=== PATIENT | male | born 1990 | race Caucasian/White ===

== ENCOUNTER 2021-09-29 10:37 | Emergency (ER) | payer OTHER, MEDICAID, SELFPAY ==
[2021-09-29 10:38] VITALS: BP 110/92; PULSE 100; RESP 18; TEMP 36.6; O2SAT 99; BMI 20.7
--- NOTE | 2021-09-29 11:13 | EX.ED.DYSGE1 ---
HPI History of Present Illness Chief Complaint: General Illness Narrative Narrative: Patient presents with 2 issues. First off, within the past 2 or 3 days he has had a runny nose, fever up to 101 off-and-on, and a nonproductive cough. Secondly, overnight he noticed that his right knee was hurting, swollen anteriorly, and having some drainage from a wound. The wound was sustained during an accidental injury, he had sutures here, those sutures were subsequently removed 2 or 3 weeks ago. He states he remember seeing it at 1 point yesterday and it was fine, and now it is not. It did not hurt him until overnight. He states at work he does a lot of squatting but is not kneeling on his knees. [facility] Medical History (Updated 09/29/21 @ 11:37 by Eunice Zarate) Psoriasis Medical History no medical history no medical history Home Medications cephalexin 500 mg capsule 500 mg PO .qid #40 CAPSULES 09/29/21 [Rx Last Taken Unknown] Allergy/AdvReac Type Severity Reaction Status Date / Time No Known Allergies Allergy Verified 09/29/21 10:41 Surgical History no surgical history no surgical history Social History Smoking Status: Never smoker ROS ROS ED Constitutional Constitutional ED: Reports chills and fever(s) Eyes Eyes: Denies change in vision or diplopia ENT ENT ED: Reports rhinorrhea; Denies sore throat Cardiovascular Cardiovascular: Denies chest pain or palpitations Respiratory/Chest Respiratory/Chest: Reports cough; Denies dyspnea Gastrointestinal Gastrointestinal: Denies abdominal pain, diarrhea, nausea or vomiting Genitourinary Genitourinary ED: Denies dysuria or hematuria Musculoskeletal Musculoskeletal: Reports extremity pain; Denies back pain or neck pain Integumentary Reports as per HPI and wounds; Denies abscess or rash Neurologic Neurologic: Denies headache(s), paresthesias or weakness Psychiatric Psychiatric: Denies anxiety or suicidal thoughts EXAM Physical Exam Const Vital Signs: 09/29/21 10:38 09/29/21 11:36 Temperature 97.9 F Temperature Source Temporal Pulse Rate 100 Respiratory Rate 18 Respiratory Pattern Normal Blood Pressure 110/92 H Blood Pressure Mean 98 Pulse Ox 99 Oxygen Delivery Method Room Air Positive well nourished and well developed Constitutional Narrative: Well-appearing in no distress General Appearance ED: well developed and NAD HEENT Reports moist mucous membranes normocephalic and atraumatic Eyes PERRL and EOMs intact bilaterally Neck full ROM and supple Resp normal respiratory effort and clear to auscultation bilaterally Effort and Inspection: able to speak in complete sentences Cardio regular rate, regular rhythm and no murmurs Rate: Negative for tachycardic GI non-tender and non-distended Auscultation: normoactive bowel sounds Palpation: soft Back/Spine no CVA tenderness General Back: other FROM Extremity Extremity Narrative: Right prepatellar swelling and bogginess without fluctuance. It is tender anteriorly where there is a scabbed wound that is horizontal over the patella, there is a scant amount of purulent material expressible from the center of this. The wound is not wide open. There does not appear to be a joint effusion or any other bony tenderness in the knee area, he has good range of motion limited at extremes of flexion due to pain anteriorly. General Extremety ED: Yes tenderness; Negative for edema or pulses abnormal General Extremity: Negative for edema or pulses abnormal Neuro oriented x3, CN's II-XII intact bilaterally and no sensory deficits noted Sensorium / Orientation: awake and alert Motor Exam: strength 5/5 throughout Skin no rashes or lesions noted Skin Narrative: Slightly erythematous scabbed wound anterior right knee with a small amount of pus expressible. MDM MDM MDM Narrative Medical decision making narrative: I prepped the right knee scabbed wound lightly with isopropanol and half of the scab fell off, showing a wound that is only into the dermis, and I was able to express a small amount of fresh purulent material that I swabbed for culture. I am mashed on the boggy prepatellar area and there is no other purulent material expressible and it does not appear to be abscessed deep into the tissues. The wound was further cleansed after the culture, dressed with bacitracin, and he was given an Ish wrap to use as needed for comfort. We also did a rapid COVID test. That is negative. Patient reassured and prescribed cephalexin which hopefully will take care of this superficial wound infection. Discharge Plan Triage Chief Complaint: General Illness ED Provider: Luis Tran Dx/Rx/DC Orders Clinical Impression: Wound infection, Bursitis, prepatellar, right Instructions: ED Wound Check (Infection) Prescriptions: New cephalexin [cephalexin] 500 mg capsule 500 mg PO .qid Qty: 40 0RF Primary Care Provider: Francis Benito Referrals: Francis Benito MD [Primary Care Provider] - 3-5 Days if not improving Disposition Disposition: Home, Self Care
[2021-09-29 13:24] VITALS: BP 115/72; PULSE 80; RESP 15; O2SAT 98
== END 2021-09-29 13:26 | disposition home or self-care (01) ==
PROVIDERS: Emergency Provider Emergency Medicine; PCP Family Medicine; Visit Provider Emergency Medicine
DX: M70.41 Prepatellar bursitis, right knee (principal); S81.001A Unspecified open wound, right knee, initial encounter; X58.XXXA Exposure to other specified factors, initial encounter; Z20.822 Contact with and (suspected) exposure to COVID-19; R50.9 Fever, unspecified; R05.9 Cough, unspecified
CPT/HCPCS: 87070; 87077; 87186; 87205; 87811; 99282

== ENCOUNTER → 2024-10-20 | Outpatient (CLI) | payer OTHER, SELFPAY ==
--- OUTSIDE RECORDS SUMMARY | 2024-10-20 16:13 | XMS RPT_ITS | CCD ---
Author Organization [facility] Team Providers Care Sales Representative Graphic Art Name Role Phone YE THORNTON, LEXY Delarosa Primary Care Physician [phone] Jose Benito MD Primary Care Provider Jose Benito MD Primary Care Provider MARK OLVERA Attending LEXY Marie MD Primary Care Unavailab Berrios, LENCHO Cleary Attending Darrin GUZMÁN, LENCHO Cleary Attending LEXY Kerr MD Primary Care UnavailSONYA Cerda Attending JOSE Marie Primary Care SONYA Vance Attending JOSE Marie Primary Care Unavailable Allergies Allergy Classification Reported Allergen(s) Allergy Type Date of Onset Reaction(s) Facility (8 sources) Latex Propensity to adverse reactions 02-23-2023 [facility] Medications Current Medications Medication Drug Class(es) Dates Sig (Normalized) Sig (Original) 1 ML risankizumab-rzaa 150 MG/ML Auto-Injector [Skyrizi] (3 sources) Start: 09-08-2021 Skyrizi Pen 150 mg/mL subcutaneous solution 0 Refill(s) Start Date: 09/08/21 Status: Ordered 0.4 ml adalimumab 100 mg/ml auto-injector (1 source) Tumor Necrosis Factor Zackary Start: 09-08-2021 Humira Pen 40 mg/0.4 mL subcutaneous kit 0 Refill(s) Start Date: 09/08/21 Status: Ordered cephalexin 500 mg oral capsule (1 source) Cephalosporin Antibacterial Start: 09-29-2021 take 500 mg by mouth four times daily Cephalexin Active 500 MG PO .qid 40 September 29, 2021 12:00am clobetasol propionate 0.0005 mg/mg topical ointment (11 sources) Corticosteroid Start: 06-30-2022 End: 04-03-2024 clobetasol (Temovate) 0.05 % ointment Indications: Psoriasis vulgaris , Encounter for long-term (current) use of high-risk medication Apply to affected areas BID x 2 weeks Stop using when clear. Repeat as needed for flares. Do not use on face, armpits, groin. 60 g 3 04/03/2024 Active Ibuprofen (1 source) Nonsteroidal Anti-inflammatory Drug Start: 02-23-2018 ibuprofen 0 Refill(s) Start Date: 02/23/18 Status: Ordered Roflumilast (2 sources) Phosphodiesterase 4 Inhibitor Start: 07-25-2024 Roflumilast (Zoryve) 0.3 % cream Apply once daily to the affected area 60 g 6 07/25/2024 Active Skyrizi Pen 150 MG/ML solution auto-injector (5 sources) Start: 03-19-2024 Skyrizi Pen 150 MG/ML solution auto-injector INJECT 150MG SUBCUTANEOUSLY EVERY 12 WEEKS 1 mL 3 03/19/2024 Active Completed/Discontinued Medications Medication Drug Class(es) Dates Sig (Normalized) Sig (Original) Risankizumab-rzaa (Skyrizi Pen) 150 MG/ML solution auto-injector (7 sources) Start: 04-26-2023 End: 03-19-2024 Risankizumab-rzaa (Skyrizi Pen) 150 MG/ML solution auto-injector INJECT 150MG SUBCUTANEOUSLY EVERY 12 WEEKS 1 mL 3 04/26/2023 03/19/2024 Discontinued Start: 04-26-2023 Risankizumab-r zaa (Skyrizi Pen) 150 MG/ML solution auto- injector INJECT 150MG SUBCUTANEOUSLY EVERY 12 WEEKS 1 mL 3 04/26/2023 Active Start: 06-09-2022 End: 04-26-2023 Risankizumab-rzaa (Skyrizi P en) 150 MG/ML solution auto- injector Inject 100mg under the skin every 12 weeks 1 mL 3 06/09/2022 04/26/2023 Discontinued Start: 06-09-2022 Risankizumab-r zaa (Skyrizi Pen) 150 MG/ML solution auto- injector Inject 100mg under the skin every 12 weeks 1 mL 3 06/09/2022 Active Problems Active Problems Problem Classification Problem Date Documented Da te Episodic/Chronic Contraceptive and procreative management (2 sources) Vasectomy status; Translations: [Vasectomy status] Onset: 03-26-2024 Episodic Other aftercare (2 sources) Long-term current use of drug therapy; Translations: [Other half-way (current) drug therapy] 12-20-2023 Episodic Other connective tissue disease (1 source) Prepatellar bursitis; Translations: [Prepatellar bursitis, right knee] Episodic Other inflammatory condition of skin (3 sources) Generalized psoriasis 09-08-2021 Chronic Other inflammatory condition of skin (16 sources) Psoriasis vulgaris; Translations: [Psoriasis vulgaris] Onset: 03-26-2021 12-06-2021 Chronic Other inflammatory condition of skin (1 source) Psoriasis vulgaris; Translations: [Psoriasis vulgaris] Onset: 12-06-2021 Chronic Other injuries and conditions due to external causes (1 source) Local infection of wound; Translations: [Other injury of unspecified body region, initial encounter] Episodic Unclassified (1 source) Patient encounter status 09-04-2021 Past or Other Problems Problem Classification Problem Date Documented Da te Episodic/Chronic Immunizations and screening for infectious disease (12 sources) Patient encounter status; Translations: [Encounter for screening for respiratory tuberculosis] Onset: 12-20-2023 Episodic Other aftercare (2 sources) Other half-way (current) drug therapy; Translations: [Other half-way (current) drug therapy] Onset: 12-20-2023 Episodic Results Test Name Value Interpretation Reference Range Facility 36 08-14-2024 36 SUBJECTIVE Lencho Alejo is a 34 year old Male who was referred to [facility] for clinical management services for Zoryve 0.3 %. Diagnosis Psoriasis vulgaris L40.0 OBJECTIVE Medications: Skyrizi Pen 150 MG/ML SOAJ SC Temovate 0.05 % CREA EX Zoryve 0.3 % CREA EX Allergies: No Known Allergies Medical History & Comorbidities: Problem list has been reviewed in the EHR ASSESSMENT / PLAN Zoryve 0.3 % Expectations and Goals of therapy Goals of therapy include reduce body surface area coverage, reduce pain/itching, and reduce flaring. Disease state education Counseled on general disease state management strategies. Emphasized that Psoriasis is a chronic medical condition that requires consistent adherence to prescribed medication in order to achieve treatment goals. Administration Apply Zoryve to affected areas once daily and rub in completely. Wash hands after application, unless treatment intended for hands. The patient will apply the medication topically once daily. I do not foresee any barriers as the patient is comfortable with application. The patient is up to date with vaccinations. Storage/Disposal Counseled on proper storage of medication at room temperature (77F max). Side effects Educated that common side effects include diarrhea, headache, trouble sleeping, nausea, application site pain, upper respiratory tract infections, and urinary tract infections. Contact Advised when to contact pharmacy or provider. Provided with direct number to clinical pharmacist for questions or concerns prior to scheduled follow up. The patient was oriented to the pharmacy?s services upon their initial fill and it was communicated that they can participate in this plan of care by speaking with a Pharmacist which is offered during each reassessment. Adherence The patient needs to apply Zoryve once daily to affected areas as prescribed. Monitoring and follow up Reviewed therapy monitoring parameters and importance to maintain follow-up lab and provider visits. The patient is aware to let us know if any issues or reactions occur while on this medication so that we can let the provider know as well as any changes in medications so we can assess for interactions and such. Pharmacy Recommendations/Educa tion/Other The patient expressed understanding of the above therapy plan and knows to reach out to us at [phone] M-F 8 AM - 5 PM. Akanksha Sargent Clinical Pharmacist [facility] [phone] [facility] Office Visiton 07-11-2024 Follow-up visit [id number] Lencho Alejo 1990 M Date Provider Department Center 07/11/2024 Vladislav-SONYA PAVON [facility] None Family History Problem Relation Age of Onset Diabetes Mother Eczema Mother Asthma Father No Known Problems Brother Family Status - Relation Status Age at Mother Alive Father Alive Brother Alive Level of Service:99405 [place] OFFICE/OUTPATIENT ESTABLISHED MOD MDM 30 MIN Reason for Visit and Comments: Psoriasis [[id number]] - (JY) [facility] Progress Noteon 07-11-2024 Progress Note DATE OF SERVICE: 07/11/2024 PATIENT NAME: Lencho Alejo : 1990 AGE: 34 y.o. CLINIC NUMBER: [id number] Visit type: Established patient Chief Complaint Patient presents with Psoriasis (JY) Subjective HISTORY OF PRESENT ILLNESS: This is a 34 y.o. male who presents for F/u psoriasis; last seen 12/20/23 with Sonya Pavon PA-C. Stable since last visit. Currently treating with skyrizi injections and clobetasol ointment PRN. Patient self administers injections at home without complications. Start date 04/2021. Last injection 05/16/24. Last labs 01/12/24 WNL. 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 Admits redness, flaking, scaling. Denies itching, burning, Admits pain on the L elbow. Denies joint pain/ joint stiffness. Denies nail ridges, pitting, thickening, discoloration. Patient has had flares to his groin for years but never mentioned it. Patient states since the skyrizi injection it has cleared a little but gets worse after month 2 of the shot. Patient has been using clobetasol down there with little to no improvement. Today is a good day. Patient admits when it is severely flared, he is unable to have intercourse due to pain and even bleeding to the area. Patient states about 1 month ago he was diagnosed with Shingles and was treated with valtrex. Patient denies having shingles vaccine. Pt has previously failed Otezla and Humira. History of pacemaker/ defibrillator? No History of HIV/ Hep C? No Allergies to Lidocaine, Epinephrine, Latex or Adhesive? Yes, Latex Review of Systems There were no vitals filed for this visit. PHYSICAL EXAM GENERAL APPEARANCE:?Alert & oriented x3, pleasant. Well developed, well nourished. PSYCH: appropriate mood and affect DERMATOLOGY: (all measurements are in cm, unless otherwise noted) Skin Exam 1. PSORIASIS VULGARIS Generalized Erythematous plaque(s) and papule(s) with overlying white/silver scale of the elbows, palms, penis, and scrotum [x]Chronic []Acute []Stable [x]Flaring/Exacerbati on Educated and reassured. Treatment options, risks, benefits, and expectations reviewed. Patient flares in the groin area. Patient advised to wear cotton gloves after lathering the clobetasol on his hands prior to going to bed. Zoryve given to patient. Start: -Zoryve cream ([facility] staff consulted regarding medication request and they will start working on PA) Apply to affected areas once daily. Stop using when clear. Repeat as needed for flares. Continue: -Skyrizi 150mg injections Q12 weeks. Pharmacy staff consulted to try and increase frequency to q 10 weeks. -clobetasol 0.05% ointment: Apply to affected areas BID x 2 weeks Stop using when clear. Repeat as needed for flares. Do not use on face, armpits, groin. Risks associated with longitudinal float operator topical steroid use reviewed in detail. Patient was advised that topical steroid is being used for short term relief and not as maintenance. Overuse of topical steroids can result in permanent skin thinning/atrophy, skin discoloration, unwanted hair growth, acne and/or stretch spangler/striae. Patient advised psoriasis is a chronic, multisystem inflammatory disease which most commonly affects the skin. Psoriasis can also affect the nails, joints and skin folds. Depending on the severity and location of the psoriasis, treatment includes topical steroids, topical vitamin D analogs, UV treatment, topical retinoids and systemic treatment. Systemic medications called biologics are injection medications that can be used to treat psoriasis. Biologics are selected on an individual basis with consideration of the patient's medical history and family history. Due to intertriginous region involvement, will consider tremfya at follow up if no improvement. Related Medications clobetasol (Temovate) 0.05 % ointment Apply to affected areas BID x 2 weeks Stop using when clear. Repeat as needed for flares. Do not use on face, armpits, groin. Follow up in about 6 months (around 01/11/2025) for psoriasis f/u. Sonya Pavon PA-C 07/11/24 4:48 PM [facility] 36on 04-03-2024 36 Refill request received for Clobetasol 0.05% ointment. Last filled 02/23/2023 by Meena Bains PA-C. Patient last seen 12/20/2023 by Sonya Andres PA-C. Patient does have a follow up appointment scheduled w/ Sonya Andres PA-C on 06/21/2024. [facility] PVASon 03-26-2024 Spermatazoa Absent [facility] MAIN Comment on above: Result Comment: Perf ormed on concentrated spun sample. Analysis of sperm samples for presence and motility should be performed within four hours of collection. Results of samples not meeting this criteria may be invalid. Performed By: #### P VAS #### [place] [address] 36on 03-19-2024 36 Refill request received for Risankizumab-rzaa (Skyrizi Pen) 150 MG/ML solution auto-injector. Last filled 04/26/23 by Sonya Andres PA-C. Patient last seen 12/20/23 by Sonya Andres PA-C. Patient does have a follow up appointment scheduled 06/21/24 with Sonya Andres PA-C. [facility] 36on 01-17-2024 36 Left voicemail for patient regarding Sonya Andres PA-C's message. Advised to call back with questions or concerns. [place] [address]on 01-16-2024 36 Left voicemail for patient to return call regarding Sonya Andres PA-C's message. [facility] 36 ----- Message from Sonya Andres PA-C sent at 01/16/2024 12:57 PM EST ----- Please notify patient that their routine biologic blood work is normal. A positive hep b antibody means patient was either exposed to hep b or got the hep b vaccines. This is nothing to worry about. Patient can continue biologic. [facility] Office Visiton 12-20-2023 Follow-up visit [id number] Lencho Alejo 1990 M Date Provider Department Center 12/20/2023 233-SONYA ANDRES [facility] None Family History Problem Relation Age of Onset Diabetes Mother Eczema Mother Asthma Father No Known Problems Brother Family Status - Relation Status Age at Mother Alive Father Alive Brother Alive Level of Service:02430 [place] OFFICE/OUTPATIENT ESTABLISHED MOD MDM 30 MIN Reason for Visit and Comments: Psoriasis [[id number]] - (PKN) [facility] Progress Noteon 12-20-2023 Progress Note DATE OF SERVICE: 12/20/2023 PATIENT NAME: Lencho Alejo : 1990 AGE: 33 y.o. CLINIC NUMBER: [id number] Visit type: Established patient Chief Complaint Patient presents with Psoriasis (PKN) Subjective HISTORY OF PRESENT ILLNESS: This is a 33 y.o. male who presents for evaluation of psoriasis vulgaris; last seen 02/23/2023. Improved, stable since last visit. Currently treating with Skyrizi 150 mg injection every 12 weeks and clobetasol 0.05% ointment BID PRN. Patient self administers injections at home without complications. Start date 04/2021. Last injection was 11/16/2023. Last labs 07/01/2022. Denies flares currently. But does admit occasional flares to the hands and genitals. Admits improvement when using clobetasol. Admits redness, flaking, scaling occasionally to the hands. Denies itching, burning, pain. Denies any new or worsening joint pain/ joint stiffness. Denies nail ridges, pitting, thickening, discoloration. Patient has tried and failed Humira and Otezla previously. History of pacemaker/ defibrillator? No History of HIV/ Hep C? No Allergies to Lidocaine, Epinephrine, Latex or Adhesive? Yes, Latex. Review of Systems There were no vitals filed for this visit. PHYSICAL EXAM GENERAL APPEARANCE:?Alert & oriented x3, pleasant. Well developed, well nourished. PSYCH: appropriate mood and affect DERMATOLOGY: (all measurements are in cm, unless otherwise noted) 1. Psoriasis vulgaris Clear skin on exam [x]Chronic []Acute [x]Stable []Flaring/Exacerbatio n Educated and reassured. Treatment options, risks, benefits, and expectations reviewed. Patient doing well on skyrizi. Needs lab done. Papers handed to him. Script will not be refilled until labs complete. Continue: -Skyrizi 150 mg injection q12 weeks. -clobetasol 0.05% ointment: Apply to affected areas BID x 2 weeks Stop using when clear. Repeat as needed for flares. Do not use on face, armpits, groin. Risks associated with half-way topical steroid use reviewed in detail. Patient was advised that topical steroid is being used for short term relief and not as maintenance. Overuse of topical steroids can result in permanent skin thinning/atrophy, skin discoloration, unwanted hair growth, acne and/or stretch spangler/striae. Patient advised psoriasis is a chronic, multisystem inflammatory disease which most commonly affects the skin. Psoriasis can also affect the nails, joints and skin folds. Depending on the severity and location of the psoriasis, treatment includes topical steroids, topical vitamin D analogs, UV treatment, topical retinoids and systemic treatment. Systemic medications called biologics are injection medications that can be used to treat psoriasis. Biologics are selected on an individual basis with consideration of the patient's medical history and family history. Related Medications clobetasol (Temovate) 0.05 % ointment Apply to affected areas BID x 2 weeks Stop using when clear. Repeat as needed for flares. Do not use on face, armpits, groin. 2. Encounter for long-term (current) use of high-risk medication Related Procedures CBC auto differential Comprehensive metabolic panel Hepatitis A antibody, IgM Hepatitis B core antibody, IgM Hepatitis B surface antibody Hepatitis B surface antigen Hepatitis C antibody HIV-1 and HIV-2 Antigen-Antibody Screen QUANTIFERON TB GOLD Related Medications clobetasol (Temovate) 0.05 % ointment Apply to affected areas BID x 2 weeks Stop using when clear. Repeat as needed for flares. Do not use on face, armpits, groin. 3. Encounter for screening for respiratory tuberculosis Related Procedures QUANTIFERON TB GOLD 4. Screening for viral disease Related Procedures Hepatitis A antibody, IgM Hepatitis B core antibody, IgM Hepatitis B surface antibody Hepatitis B surface antigen Hepatitis C antibody HIV-1 and HIV-2 Antigen-Antibody Screen Follow up in about 6 months (around 06/19/2024) for Psoriasis f/u. Sonya Andres PA-C 12/20/23 4:08 PM Normal [facility] .Auto Diffon 09-20-2023 Basophil, Absolute 0.0 10 3/mcL Normal 0.0-0.3 [facility] ([place]) Comment on above: Performed By: #### A DIFF, TROPHS, ANEU, CMP, GFR, CBC, MDW #### [address] [address] Basophils/100 WBC (Bld) 0.7 % Normal 0.0-2.5 [facility] ([place]) Comment on above: Performed By: #### A DIFF, TROPHS, ANEU, CMP, GFR, CBC, MDW #### [address] [address] Eosinophil, Absolute 0.4 10 3/mcL Normal 0.0-0.7 [facility] ([place]) Comment on above: Performed By: #### A DIFF, TROPHS, ANEU, CMP, GFR, CBC, MDW #### [address] [address] Eosinophils/100 WBC (Bld) 5.7 % Normal 0.0-6.0 [facility] ([place]) Comment on above: Performed By: #### A DIFF, TROPHS, ANEU, CMP, GFR, CBC, MDW #### [address] [address] Lymphocyte, Absolute 1.1 10 3/mcL Normal 0.9-4.3 [facility] ([place]) Comment on above: Performed By: #### A DIFF, TROPHS, ANEU, CMP, GFR, CBC, MDW #### [address] [address] Lymphocytes/100 WBC (Bld) 15.9 % Low 20.0-40.0 [facility] ([place]) Comment on above: Performed By: #### A DIFF, TROPHS, ANEU, CMP, GFR, CBC, MDW #### [address] [address] Monocyte, Absolute 0.5 10 3/mcL Normal 0.1-1.4 [facility] ([place]) Comment on above: Performed By: #### A DIFF, TROPHS, ANEU, CMP, GFR, CBC, MDW #### [address] [address] Monocytes/100 WBC (Bld) 7.0 % Normal 2.0-13.0 [facility] ([place]) Comment on above: Performed By: #### A DIFF, TROPHS, ANEU, CMP, GFR, CBC, MDW #### [address] [address] Neutrophils/100 WBC (Bld) 70.7 % Normal 50.0-75.0 [facility] ([place]) Comment on above: Performed By: #### A DIFF, TROPHS, ANEU, CMP, GFR, CBC, MDW #### [address] [address] .GFRon 09-20-2023 GFR Non- >60 Normal [facility] ([place]) Comment on above: Result Comment: GFR Population mean for , Non- Americans Ages 20-29 = 116 mL/min/1.73 sq.m. Ages 30-39 = 107 mL/min/1.73 sq.m. Ages 40-49 = 99 mL/min/1.73 sq.m. Ages 50-59 = 93 mL/min/1.73 sq.m. Ages 60-69 = 85 mL/min/1.73 sq.m. Ages 70+ = 75 mL/min/1.73 sq.m. Chronic Kidney Disease: Less than 60 mL/min/1.73 square meters End Stage Renal Disease: Less than 15 mL/min/1.73 square meters Performed By: #### A DIFF, TROPHS, ANEU, CMP, GFR, CBC, MDW #### [address] [address] GFR >60 Normal [facility] ([place]) Comment on above: Result Comment: GFR Population mean for , Non- Americans Ages 20-29 = 116 mL/min/1.73 sq.m. Ages 30-39 = 107 mL/min/1.73 sq.m. Ages 40-49 = 99 mL/min/1.73 sq.m. Ages 50-59 = 93 mL/min/1.73 sq.m. Ages 60-69 = 85 mL/min/1.73 sq.m. Ages 70+ = 75 mL/min/1.73 sq.m. Chronic Kidney Disease: Less than 60 mL/min/1.73 square meters End Stage Renal Disease: Less than 15 mL/min/1.73 square meters Performed By: #### A DIFF, TROPHS, ANEU, CMP, GFR, CBC, MDW #### [address] [address] .MDWon 09-20-2023 Monocyte Distribution Width 16.43 Normal 0.00-20.00 [facility] ([place]) Comment on above: Result Comment: For ED adult patients suspected of sepsis, MDW<=20.0 does not rule out sepsis or risk of sepsis Performed By: #### A DIFF, TROPHS, ANEU, CMP, GFR, CBC, MDW #### [address] [address] .NEUABSon 09-20-2023 Neutrophil, Absolute 5.0 10 3/mcL Normal 2.3-8.1 [facility] ([place]) Comment on above: Performed By: #### A DIFF, TROPHS, ANEU, CMP, GFR, CBC, MDW #### [place] [address] CBCon 09-20-2023 Erythrocyte distribution width (RBC) [Ratio] 13.9 % Normal 11.5-15.5 [facility] ([place]) Comment on above: Performed By: #### A DIFF, TROPHS, ANEU, CMP, GFR, CBC, MDW #### [place] [address] Hematocrit (Bld) [Volume fraction] 40.4 % Normal 40.0-52.0 [facility] ([place]) Comment on above: Performed By: #### A DIFF, TROPHS, ANEU, CMP, GFR, CBC, MDW #### [place] [address] Hgb 13.6 G/dL Normal 13.0-17.5 [facility] ([place]) Comment on above: Performed By: #### A DIFF, TROPHS, ANEU, CMP, GFR, CBC, MDW #### [place] [address] MCH (RBC) [Entitic mass] 31.5 pg Normal 27.0-33.0 [facility] ([place]) Comment on above: Performed By: #### A DIFF, TROPHS, ANEU, CMP, GFR, CBC, MDW #### [place] [address] MCHC 33.6 G/dL Normal 32.0-36.0 [facility] ([place]) Comment on above: Performed By: #### A DIFF, TROPHS, ANEU, CMP, GFR, CBC, W #### [place] [address] MCV (RBC) [Entitic vol] 93.8 fL Normal 81.0-100.0 [facility] ([place]) Comment on above: Performed By: #### A DIFF, TROPHS, ANEU, CMP, GFR, CBC, MDW #### [place] [address] Platelet 223 10 3/mcL Normal 150-450 [facility] ([place]) Comment on above: Performed By: #### A DIFF, TROPHS, ANEU, CMP, GFR, CBC, W #### [place] [address] Platelet mean volume (Bld) [Entitic vol] 7.9 fL Normal 6.4-10.5 [facility] ([place]) Comment on above: Performed By: #### A DIFF, TROPHS, ANEU, CMP, GFR, CBC, W #### [place] [address] RBC 4.31 10 6/mcL Low 4.50-6.00 [facility] ([place]) Comment on above: Performed By: #### A DIFF, TROPHS, ANEU, CMP, GFR, CBC, W #### [place] [address] WBC 7.0 10 3/mcL Normal 4.5-10.8 [facility] ([place]) Comment on above: Performed By: #### A DIFF, TROPHS, ANEU, CMP, GFR, CBC, W #### [place] [address] CMPon 09-20-2023 Albumin Level 4.5 G/dL Normal 3.2-4.8 [facility] ([place]) Comment on above: Performed By: #### A DIFF, TROPHS, ANEU, CMP, GFR, CBC, W #### [address] [address] Albumin/Globulin [Mass ratio] 1.9 {ratio} High 0.9-1.6 [facility] ([place]) Comment on above: Performed By: #### A DIFF, TROPHS, ANEU, CMP, GFR, CBC, MDW #### [place] [id number] ALP [Catalytic activity/Vol] 67 U/L Normal 38-126 [facility] ([place]) Comment on above: Performed By: #### A DIFF, TROPHS, ANEU, CMP, GFR, CBC, MDW #### [place] [id number] ALT [Catalytic activity/Vol] 14 U/L Normal 12-55 [facility] ([place]) Comment on above: Performed By: #### A DIFF, TROPHS, ANEU, CMP, GFR, CBC, MDW #### [place] [id number] AST [Catalytic activity/Vol] 23 U/L Normal 8-34 [facility] ([place]) Comment on above: Performed By: #### A DIFF, TROPHS, ANEU, CMP, GFR, CBC, MDW #### [place] [id number] Bili Total 0.60 mg/dL Normal 0.20-1.20 [facility] ([place]) Comment on above: Result Comment: Use of this assay is not recommended for patients undergoing treatment with eltrombopag due to the potential for falsely elevated results. Performed By: #### A DIFF, TROPHS, ANEU, CMP, GFR, CBC, MDW #### [place] [id number] BUN/Creatinine Ratio 20.2 ratio Normal 10.0-22.0 [facility] ([place]) Comment on above: Performed By: #### A DIFF, TROPHS, ANEU, CMP, GFR, CBC, MDW #### [place] [id number] Calcium [Mass/Vol] 9.6 mg/dL Normal 8.7-10.4 [facility] ([place]) Comment on above: Performed By: #### A DIFF, TROPHS, ANEU, CMP, GFR, CBC, MDW #### [address] [address] Chloride [Moles/Vol] 102 mmol/L Normal 98-110 [facility] ([place]) Comment on above: Performed By: #### A DIFF, TROPHS, ANEU, CMP, GFR, CBC, MDW #### [address] [address] CO2 [Moles/Vol] 27 mmol/L Normal 22-32 [facility] ([place]) Comment on above: Performed By: #### A DIFF, TROPHS, ANEU, CMP, GFR, CBC, MDW #### [place] [id number] Creatinine [Mass/Vol] 0.84 mg/dL Normal 0.60-1.40 [facility] ([place]) Comment on above: Performed By: #### A DIFF, TROPHS, ANEU, CMP, GFR, CBC, MDW #### [place] [address] Electrolyte Balance 9.0 mEq/L Normal 4.0-15.0 [facility] ([place]) Comment on above: Performed By: #### A DIFF, TROPHS, ANEU, CMP, GFR, CBC, MDW #### [address] [address] Globulin 2.4 G/dL Normal 1.5-3.8 [facility] ([place]) Comment on above: Performed By: #### A DIFF, TROPHS, ANEU, CMP, GFR, CBC, MDW #### [address] [address] Glucose [Mass/Vol] 80 mg/dL Normal 70-110 [facility] ([place]) Comment on above: Performed By: #### A DIFF, TROPHS, ANEU, CMP, GFR, CBC, MDW #### [place] [id number] Potassium [Moles/Vol] 3.8 mmol/L Normal 3.5-5.0 [facility] ([place]) Comment on above: Performed By: #### A DIFF, TROPHS, ANEU, CMP, GFR, CBC, MDW #### [address] [address] Sodium [Moles/Vol] 138 mmol/L Normal 136-145 [facility] ([place]) Comment on above: Performed By: #### A DIFF, TROPHS, ANEU, CMP, GFR, CBC, MDW #### [address] [address] Total Protein 6.9 G/dL Normal 5.7-8.2 [facility] ([place]) Comment on above: Result Comment: No te - New Reference Range in effect 19 Performed By: #### A DIFF, TROPHS, ANEU, CMP, GFR, CBC, MDW #### [address] [address] Urea nitrogen [Mass/Vol] 17.0 mg/dL Normal 8.0-22.0 [facility] ([place]) Comment on above: Performed By: #### A DIFF, TROPHS, ANEU, CMP, GFR, CBC, MDW #### [address] [address] LABORATORYOrdered By: SYSTEM SYSTEM on 09-20-2023 Albumin BCP dye [Mass/Vol] 4.5 G/dL Normal 3.2 - 4.8 G/dL ADM SS Albumin/Globulin [Mass ratio] 1.9 {ratio} High 0.9 - 1.6 ratio ADM SS ALP [Catalytic activity/Vol] 67 U/L Normal 38 - 126 U/L ADM SS ALT No additional P-5'-P [Catalytic activity/Vol] 14 U/L Normal 12 - 55 U/L ADM SS AST [Catalytic activity/Vol] 23 U/L Normal 8 - 34 U/L ADM SS Basophils (Bld) [#/Vol] 0.0 103/mcL Normal 0.0 - 0.3 10^3/mcL AH Workflow SS Basophils/100 WBC (Bld) 0.7 % Normal 0.0 - 2.5 % Workflow SS Bilirubin [Mass/Vol] 0.60 mg/dL Normal 0.20 - 1.20 mg/dL ADM SS Comment on above: Interpretive Data: U se of this assay is not recommended for patients undergoing treatment with eltrombopag due to the potential for falsely elevated results. Calcium [Mass/Vol] 9.6 mg/dL Normal 8.7 - 10. 4 mg/dL ADM SS Chloride [Moles/Vol] 102 mmol/L Normal 98 - 11 0 mEq/L ADM SS CO2 [Moles/Vol] 27 mmol/L Normal 22 - 32 mEq/L ADM SS Creatinine [Mass/Vol] 0.84 mg/dL Normal 0.60 - 1.40 mg/dL ADM SS Electrolyte Balance 9.0 mEq/L Normal 4.0 - 15 .0 mEq/L ADM SS Eosinophils (Bld) [#/Vol] 0.4 103/mcL Normal 0.0 - 0.7 10^3/mcL Workflow SS Eosinophils/100 WBC (Bld) 5.7 % Normal 0.0 - 6.0 % Workflow SS Erythrocyte distribution width (RBC) [Ratio] 13.9 % Normal 11.5 - 15.5 % Workflow SS GFR/1.73 sq M.predicted among blacks MDRD (S/P/Bld) [Vol rate/Area] ml/min/1.73sqm Invalid Interpretation Code ADM SS Comment on above: Interpretive Data: GFR Population mean for , Non- Americans Ages 20-29 = 116 mL/min/1.73 sq.m. Ages 30-39 = 107 mL/min/1.73 sq.m. Ages 40-49 = 99 mL/min/1.73 sq.m. Ages 50-59 = 93 mL/min/1.73 sq.m. Ages 60-69 = 85 mL/min/1.73 sq.m. Ages 70+ = 75 mL/min/1.73 sq.m. Chronic Kidney Disease: Less than 60 mL/min/1.73 square meters End Stage Renal Disease: Less than 15 mL/min/1.73 square meters GFR/1.73 sq M.predicted among non-blacks MDRD (S/P/Bld) [Vol rate/Area] ml/min/1.73sqm Invalid Interpretation Code AH ADM SS Comment on above: Interpretive Data: GFR Population mean for , Non- Americans Ages 20-29 = 116 mL/min/1.73 sq.m. Ages 30-39 = 107 mL/min/1.73 sq.m. Ages 40-49 = 99 mL/min/1.73 sq.m. Ages 50-59 = 93 mL/min/1.73 sq.m. Ages 60-69 = 85 mL/min/1.73 sq.m. Ages 70+ = 75 mL/min/1.73 sq.m. Chronic Kidney Disease: Less than 60 mL/min/1.73 square meters End Stage Renal Disease: Less than 15 mL/min/1.73 square meters Globulin 2.4 G/dL Normal 1.5 - 3.8 G/dL AH ADM SS Glucose [Mass/Vol] 80 mg/dL Normal 70 - 110 mg/dL AH ADM SS Hematocrit (Bld) [Volume fraction] 40.4 % Normal 40.0 - 52.0 % AH Workflow SS Hemoglobin (Bld) [Mass/Vol] 13.6 G/dL Normal 13.0 - 17.5 G/dL AH Workflow SS Lymphocytes (Bld) [#/Vol] 1.1 103/mcL Normal 0.9 - 4.3 10^3/mcL AH Workflow SS Lymphocytes/100 WBC (Bld) 15.9 % Low 20.0 - 40.0 % AH Workflow SS MCH (RBC) [Entitic mass] 31.5 pg Normal 27.0 - 33.0 pg AH Workflow SS MCHC 33.6 G/dL Normal 32.0 - 36.0 G/dL AH Workflow SS MCV (RBC) [Entitic vol] 93.8 fL Normal 81.0 - 100.0 fL AH Workflow SS Monocyte distribution width Auto (Bld) [Entitic vol] 16.43 1 Normal 0.00 - 20.00 AH Workflow SS Comment on above: Result Comment: For ED adult patients suspected of sepsis, MDW<=20.0 does not rule out sepsis or risk of sepsis Monocytes (Bld) [#/Vol] 0.5 103/mcL Normal 0.1 - 1.4 10^3/mcL AH Workflow SS Monocytes/100 WBC (Bld) 7.0 % Normal 2.0 - 13.0 % AH Workflow SS Neutrophils (Bld) [#/Vol] 5.0 103/mcL Normal 2.3 - 8.1 10^3/mcL AH Workflow SS Neutrophils/100 WBC (Bld) 70.7 % Normal 50.0 - 75.0 % Workflow SS Platelet mean volume (Bld) [Entitic vol] 7.9 fL Normal 6.4 - 10.5 fL Workflow SS Platelets (Bld) [#/Vol] 223 103/mcL Normal 150 - 450 10^3/mcL Workflow SS Potassium [Moles/Vol] 3.8 mmol/L Normal 3.5 - 5.0 mEq/L ADM SS Protein [Mass/Vol] 6.9 G/dL Normal 5.7 - 8.2 G/dL ADM SS Comment on above: Interpretive Data: * *Note - New Reference Range in effect 19 RBC (Bld) [#/Vol] 4.31 106/mcL Low 4.50 - 6.0 0 10^6/mcL Workflow SS Sodium [Moles/Vol] 138 mmol/L Normal 136 - 145 mEq/L ADM SS Troponin I.cardiac DL <= 0.01 ng/mL [Mass/Vol] ng/L Normal 0 - 54 ng/L ADM SS Comment on above: Interpretive Data: High Sensitive Troponin I Reference Ranges: Female: 0-34 ng/L Male: 0-54 ng/L Testing performed on [employer] IM analyzer using direct chemiluminescent technology. Urea nitrogen [Mass/Vol] 17.0 mg/dL Normal 8.0 - 22.0 mg/dL ADM SS Urea nitrogen/Creatinine [Mass ratio] 20.2 ratio Normal 10.0 - 22.0 ratio ADM SS WBC (Bld) [#/Vol] 7.0 103/mcL Normal 4.5 - 10.8 10^3/mcL [facility] High Sensitivity Troponin I <3 Normal 0-54 [facility] ([place]) Comment on above: Result Comment: High Sensitive Troponin I Reference Ranges: Female: 0-34 ng/L Male: 0-54 ng/L Testing performed on [employer] IM analyzer using direct chemiluminescent technology. Performed By: #### A DIFF, TROPHS, ANEU, CMP, GFR, CBC, MDW #### [address] [address] XR CHEST 1 VIEWon 09-20-2023 XR CHEST 1 VIEW ORIGINAL EXAMINATION: ONE XRAY VIEW OF THE CHEST7/ 3:27 pm COMPARISON: None. HISTORY: ORDERING SYSTEM PROVIDED HISTORY: Reason for Exam: pain FINDINGS: The cardiomediastinal contours are normal. Vascular structures appear within normal limits. There is no consolidation. Focal density projects near the anterior margin of the left 5th rib. No pleural fluid or pneumothorax. No aggressive osseous lesions identified. IMPRESSION: No acute radiographic finding Density projecting near the anterior margin of the left 5th rib could relate to costochondral calcification, a nipple shadow artifact or parenchymal abnormality. Consider PA and lateral views of the chest to exclude pathology Interpreted by: Edenilson Perry MD Preliminary Report By: Edenilson Perry MD Electronically signed By Edenilson Perry MD Dictated Date: 09/20/2023 3:29:29 PM Prelim Date: 09/20/2023 3:31:07 PM Sign Date: 09/20/2023 3:31:07 PM Ordering Provider: MARK OLVERA [facility] ([place]) Wound Cultureon 10-01-2021 WC Staphylococcus aureu s Amount Growth 3+ Staphylococcus aureus: REACTION cefOXitin Susc Islt NEG Doxycycline Islt ALEXUS <=0.5 S Clindamycin Islt ALEXUS 0.25 S Clindamycin.induced Susc Islt NEG Erythromycin Islt ALEXUS <=0.25 S Gentamicin Islt ALEXUS <=0.5 S levoFLOXacin Islt ALEXUS 0.25 S Linezolid Islt ALEXUS 2 S Moxifloxacin Islt ALEXUS <=0.25 S Oxacillin Susc Islt 0.5 S Tetracycline Islt ALEXUS <=1 S TMP SMX Islt ALEXUS <=10 S Vancomycin Islt ALEXUS <=0.5 S Normal [facility] Comment on above: Performed By: #### M 100.505, M100.3000, M100.2000 #### [facility] [address] [place], [address] COVID 19 AG RAPID (KIMBERLY Flanagan)on 09-29-2021 SARS-CoV-2 (COVID-19) RNA TELLY+probe Ql (Unsp spec) *Negative results from patients with symptom onset beyond five days should be treated as presumptive and confirmed by a molecular assay if clinically necessary. Negative results should not be used as the sole basis for treatment or for patient management. SARS-CoV-2 Ag Resp Ql IA.rapid *Positive results do not differentiate between SARS-CoV and SARS-CoV-2. If differentiation of the specific SARS virus is desired an additional sample and an additional order is required. SARS-CoV-2 Ag Resp Ql IA.rapid * This test has not been FDA cleared or approved; the test has been authorized by FDA under an Emergency Use Authorization (EAU) for use by laboratories certified under CLIA that meet the requirements to perform moderate, high, or waived complexity tests. SARS-CoV-2 Ag Resp Ql IA.rapid Normal Reference Range: Negative SARS-CoV-2 (COVID 19) Negative RAPID METHOD [employer] COVID19 Ag Card Normal [facility] Comment on above: Performed By: #### M 100.505, M100.3000, M100.2000 #### [facility] [address] [place], [address] Emergency Department Summary on 09-29-2021 Emergency Department Summary [facility] Medical Records Department [address] [place] [address] Emergency Department Summary 09/29/21 MR#: [id number] Acct: [id number] Name: IAN ALEJO Rep #: [id number] : 1990 31 From: Luis Tran MD PCP: Dr. Lexy Benito MD Status:REG ER Location: ED HPI History of Present Illness Chief Complaint: General Illness Narrative Narrative: Patient presents with 2 issues. First off, within the past 2 or 3 days he has had a runny nose, fever up to 101 off-and-on, and a nonproductive cough. Secondly, overnight he noticed that his right knee was hurting, swollen anteriorly, and having some drainage from a wound. The wound was sustained during an accidental injury, he had sutures here, those sutures were subsequently removed 2 or 3 weeks ago. He states he remember seeing it at 1 point yesterday and it was fine, and now it is not. It did not hurt him until overnight. He states at work he does a lot of squatting but is not kneeling on his knees. [facility] Medical History (Updated 09/29/21 @ 11:37 by Eunice Zarate) Psoriasis Medical History no medical history no medical history Home Medications cephalexin 500 mg capsule 500 mg PO .qid #40 CAPSULES 09/29/21 [Rx Last Taken Unknown] Allergy/AdvReac Type Severity Reaction Status Date / Time No Known Allergies Allergy Verified 09/29/21 10:41 Surgical History no surgical history no surgical history Social History Smoking Status: Never smoker ROS ROS ED Constitutional Constitutional ED: Reports chills and fever(s) Eyes Eyes: Denies change in vision or diplopia ENT ENT ED: Reports rhinorrhea; Denies sore throat Cardiovascular Cardiovascular: Denies chest pain or palpitations Respiratory/Chest Respiratory/Chest: Reports cough; Denies dyspnea Gastrointestinal Gastrointestinal: Denies abdominal pain, diarrhea, nausea or vomiting Genitourinary Genitourinary ED: Denies dysuria or hematuria Musculoskeletal Musculoskeletal: Reports extremity pain; Denies back pain or neck pain Integumentary Reports as per HPI and wounds; Denies abscess or rash Neurologic Neurologic: Denies headache(s), paresthesias or weakness Psychiatric Psychiatric: Denies anxiety or suicidal thoughts EXAM Physical Exam Const Vital Signs: 09/29/21 10:38 09/29/21 11:36 Temperature 97.9 F Temperature Source Temporal Pulse Rate 100 Respiratory Rate 18 Respiratory Pattern Normal Blood Pressure 110/92 H Blood Pressure Mean 98 Pulse Ox 99 Oxygen Delivery Method Room Air Positive well nourished and well developed Constitutional Narrative: Well-appearing in no distress General Appearance ED: well developed and NAD HEENT Reports moist mucous membranes normocephalic and atraumatic Eyes PERRL and EOMs intact bilaterally Neck full ROM and supple Resp normal respiratory effort and clear to auscultation bilaterally Effort and Inspection: able to speak in complete sentences Cardio regular rate, regular rhythm and no murmurs Rate: Negative for tachycardic GI non-tender and non-distended Auscultation: normoactive bowel sounds Palpation: soft Back/Spine no CVA tenderness General Back: other FROM Extremity Extremity Narrative: Right prepatellar swelling and bogginess without fluctuance. It is tender anteriorly where there is a scabbed wound that is horizontal over the patella, there is a scant amount of purulent material expressible from the center of this. The wound is not wide open. There does not appear to be a joint effusion or any other bony tenderness in the knee area, he has good range of motion limited at extremes of flexion due to pain anteriorly. General Extremety ED: Yes tenderness; Negative for edema or pulses abnormal General Extremity: Negative for edema or pulses abnormal Neuro oriented x3, CN's II-XII intact bilaterally and no sensory deficits noted Sensorium / Orientation: awake and alert Motor Exam: strength 5/5 throughout Skin no rashes or lesions noted Skin Narrative: Slightly erythematous scabbed wound anterior right knee with a small amount of pus expressible. MDM MDM MDM Narrative Medical decision making narrative: I prepped the right knee scabbed wound lightly with isopropanol and half of the scab fell off, showing a wound that is only into the dermis, and I was able to express a small amount of fresh purulent material that I swabbed for culture. I am mashed on the boggy prepatellar area and there is no other purulent material expressible and it does not appear to be abscessed deep into the tissues. The wound was further cleansed after the culture, dressed with bacitracin, and he was given an Ish wrap to use as needed for comfort. We also did a rapid COVID test. That is negative. Patient reassured a (more content not included)... Normal [facility] Gram Stainon 09-29-2021 GS Gram Stain 1+ White Blood Cells 3+ Gram positive cocci Rare Intracellular Gram positive cocci Normal [facility] Comment on above: Performed By: #### M 100.505, M100.3000, M100.2000 #### [facility] [address] [place], [address] CNOVon 04-06-2021 CNOV Office Visit (PODIWS ) LENCHO ALEJO ([id number]) 1990 M Date Time Provider Department 04/06/21 3:30 PM MARTINA SOFIA During your visit today, we recorded the following information about you: Kacy Reeves MA 04/29/2021 11:11 AM Signed Patient presents with: Left Foot - Follow Up, Ingrown Toenail Referring Provider: SELF [200] Allergies As of Date: 04/06/2021 (No Known Allergies) Date Reviewed: 04/06/2021 Reviewed by: Kacy Reeves MA - Fully Assessed Reason for Visit: Appointment Cancelled [1023] Follow Up [171] Ingrown Toenail [111] Primary Visit Diagnosis:APPOINTMENT CANCELLED Prescriptions as of 04/29/2021 - LINDA NUR, PEN 40 mg/0.4 mL pen kit INJECT 40 MG INTO THE SKIN EVERY 14 DAYS Problem List As Of Date: 04/06/2021 (None) Encounter Status:Closed by JOSE GUTIERRES CMA on 04/29/21 [facility] [place] 03-17-2021 CNPN Telephone (PODIWS) LENCHO ALEJO ([id number]) 1990 M Date Time Provider Department 03/17/21 MARTINA SOFIA During your visit today, we recorded the following information about you: Tiffanie Saavedra RN 03/17/2021 5:03 PM Signed Pt. called and states his toe is much better. He states he is not having redness, drainage or fever. He asks if he can schedule the other toe for removal? Martina Sofia DPM 03/19/2021 2:55 PM Signed He can schedule an appointment to have the other nail removed CAPRICE Rodríguez RN 03/19/2021 3:53 PM Signed Left pt. detailed message on identified voicemail to call office and schedule appt for toenail removal. Please schedule 45 minute appt when patient calls back. Thank you. Theresa Gil, RN Theresa Gil, RN 03/26/2021 11:08 AM Signed Called pt and left second message on identified voicemail. Informed patient that if he wishes to have toenail removed, he can call our office to schedule appointment. Theresa Gil RN Allergies As of Date: 03/17/2021 (No Known Allergies) Date Reviewed: 02/25/2021 Reviewed by: Charmaine Ruvalcaba RN - Fully Assessed Reason for Visit: update on status of toe [Other] Prescriptions as of 03/26/2021 - HUMIRA,CF, PEN 40 mg/0.4 mL pen kit INJECT 40 MG INTO THE SKIN EVERY 14 DAYS Problem List As Of Date: 03/17/2021 (None) Encounter Status:Closed by THERESA GIL on 03/26/21 [facility] CNPDesiree 03-01-2021 CNPN Telephone (PODIWS) LENCHO ALEJO ([id number]) 1990 M Date Time Provider Department 03/01/21 MARTINA SOFIA During your visit today, we recorded the following information about you: Martina Sofia DPM 03/01/2021 7:24 PM Signed Attempted to contact patient on March 01, 2021 to discuss culture results. No answer. I left message for patient to continue with antibiotic. If he has any issues, he is to contact the office Martina Sofia DPM Allergies As of Date: 03/01/2021 (No Known Allergies) Date Reviewed: 02/25/2021 Reviewed by: Charmaine Ruvalcaba RN - Fully Assessed Reason for Visit: Results [95] Prescriptions as of 03/01/2021 - amoxicillin-clavulani c acid (AUGMENTIN) 875-125 mg per tablet Take 1 tablet by mouth twice daily for 7 days. FOR 7 DAYS. - HUMIRA,CF, PEN 40 mg/0.4 mL pen kit INJECT 40 MG INTO THE SKIN EVERY 14 DAYS Problem List As Of Date: 03/01/2021 (None) Encounter Status:Closed by MARTINA SOFIA DPM on 03/01/21 [facility] CNOVon 02-25-2021 CNOV Office Visit (PODIWS ) LENCHO ALEJO ([id number]) 1990 M Date Time Provider Department 02/25/21 3:45 PM MARTINA SOFIA PODKATIA During your visit today, we recorded the following information about you: Charmaine Ruvalcaba RN 02/25/2021 11:00 PM Signed AMB ROOMING INTAKE FLOWSHEET DATA Risk Screening Do you have concerns about personal safety or safety in the home?: No Pain Pain Level: 3 Pain Location: Toe Description: Aching Duration Amount of Time: (several) Duration Units: Weeks Frequency: Intermittent Intervention/Comfort measure: Reposition,Relaxation Patient presents with: Right Great Toe - Follow Up, Ingrown Toenail Martina Sofia DPM 02/25/2021 11:00 PM Signed Follow up podiatric office visit for: Chief Complaint: This 30 year old who presents for follow up:right hallux s/p matrixectomy to medial nail border Patient presents to clinic for evaluation of right great toe. He is s/p matrixectomy to medial nail border. He had been doing very well. He noticed some redness to the proximal nail fold recently with a loose piece of skin. He picked the nail and then since cutting the nail, he has noticed some redness and slight discharge. He is here to discuss the appearance of the right hallux. Patient does report some pain to his right hallux. He states the toe is slightly sore. PAIN EVALUATION 02/25/2021 1550 Pain Level: 3 Pain Location: Toe Description: Aching Duration Amount of Time: ? several Duration Units: Weeks Frequency: Intermittent Intervention/Comfort measure: Reposition;Relaxation No results found for: HBA1C PCP: No primary care provider on file. No past medical history on file. Current Outpatient Medications Medication Sig - HUMIRA,CF, PEN 40 mg/0.4 mL pen kit INJECT 40 MG INTO THE SKIN EVERY 14 DAYS No current facility-administered medications for this visit. ALLERGIES No Known Allergies No past surgical history on file. Physical Exam: Constitutional: Pt is a well developed 30 year old male who is alert, oriented, cooperative and in no apparent distress. OBJECTIVE: NVSI unchanged from previous visit. Dermatological: Right hallux medial nail border appears to be healing. There is slight pain noted to the medial nail border with slight redness and slight serous drainage. No evidence of spicule noted. Musculoskeletal/Ortho paedic: Patient has pain to palpation of right hallux medial nail border ASSESSMENT: (S91.109A) Open wound of toe, initial encounter (primary encounter diagnosis) PLAN: Patient is s/p matrixectomy of medial border of right hallux. The medial border appears to be healing as expected. Slight redness and drainage noted. I discussed options. We discussed placing patient on antibiotic and continuing with local wound care vs removing additional nail border. Patient has elected to start antibiotic. A wound culture was performed. I will have patient continue with local wound care. If condition fails to improve, consider removing additional medial border. CAPRICE Rodríguez DPM 02/25/2021 4:06 PM Signed Continue to soak toe daily Continue to apply topical antibiotic daily until healed. Take antibiotic for one week If condition fails to improve, consider revised procedure Referring Provider: MARTINA SOFIA [[id number]] Allergies As of Date: 02/25/2021 (No Known Allergies) Date Reviewed: 02/25/2021 Reviewed by: Charmaine Ruvalcaba RN - Fully Assessed Reason for Visit: Follow Up [171] Ingrown Toenail [111] Primary Visit Diagnosis:Open wound of toe, initial encounter [S91.109A] Order(s):amoxicillin- clavulanic acid (AUGMENTIN) 875-125 mg per tabletTake 1 tablet by mouth twice daily for 7 days. FOR 7 DAYS.Disp: 14 tabletRfl: 0 WOUND CULTURE AND GRAM STAIN [SQWCUL] Order #: [id number] Prescriptions as of 02/25/2021 - amoxicillin-clavulani c acid (AUGMENTIN) 875-125 mg per tablet Take 1 tablet by mouth twice daily for 7 days. FOR 7 DAYS. - LINDA NUR, PEN 40 mg/0.4 mL pen kit INJECT 40 MG INTO THE SKIN EVERY 14 DAYS Problem List As Of Date: 02/25/2021 (None) Other instructions from your clinician: Continue to soak toe daily Continue to apply topical antibiotic daily until healed. Take antibiotic for one week If condition fails to improve, consider revised procedure Prescriptions ordered this encounter Disp Refills Start End AMOXICILLIN 875 MG-POTASSIUM CLAVULA* 14 t* 0 02/25/2021 03/04/2021 Route: ORAL Sig: Take 1 tablet by mouth twice daily for 7 days. FOR 7 DAYS. Encounter Status:Closed by MARTINA SOFIA DPM on 02/25/21 Normal [facility] Wound Culture/Stainon 2021 Wound Culture/Stain Sp. Request/Comment: - Swab Smear Result - Rare Gram positive cocci --> ABNORMAL ALERT No Polymorphonuclear Leukocytes Culture Result - Many Streptococcus dysgalactiae (Group C/G streptococcus) --> ABNORMAL ALERT Susceptibility testing not performed on beta hemolytic streptococci due to predictable susceptibility to penicillin and other beta lactams. For testing, call Microbiology within 72 hours. --> ABNORMAL ALERT Many skin jasen For wound culture, tissue or aspirates are superior to swab specimens. If a swab must be used, eSwab is preferred. Critically abnormal [facility] Comment on above: Performed By: #### W CUL ####[facility] [place] [id number] [place], [place] [address]Gyvspdjqq[facility] [id number] [place], [place] [phone] CNOVon 02-02-2021 CNOV Office Visit (PODIWS ) LENCHO ALEJO ([id number]) 1990 M Date Time Provider Department 02/02/21 3:15 PM MARTINA SOFIA During your visit today, we recorded the following information about you: Martina CAPRICE Sofia 02/02/2021 10:07 PM Signed Follow up podiatric office visit for: Chief Complaint: This 30 year old who presents for follow up:ingrowing toenail of b/l hallux R>L Patient presents to clinic for evaluation of b/l hallux. Patient has chronic ingrowing toenail of b/l hallux R>l. He states the medial border causes him pain whenever he is wearing narrow shoes . He is here to discuss procedure of the toenail. Patient currently smokes 1/4 pack of cigarettes/day. Patient did have pvr to determine circulation in lower extremity. Patient is on humira every 2 weeks for psoriasis. PAIN EVALUATION 02/02/2021 1522 Pain Level: 7 Pain Location: Foot-Left BILATERAL Frequency: Intermittent No results found for: HBA1C PCP: No primary care provider on file. No past medical history on file. Current Outpatient Medications Medication Sig - HUMIRA,CF, PEN 40 mg/0.4 mL pen kit INJECT 40 MG INTO THE SKIN EVERY 14 DAYS No current facility-administered medications for this visit. ALLERGIES No Known Allergies No past surgical history on file. Physical Exam: Constitutional: Pt is a well developed 30 year old male who is alert, oriented, cooperative and in no apparent distress. OBJECTIVE: Vascular: Non-Invasive Vascular Laboratory [facility] ? Lower Extremity Arterial Physiology Study Bilateral/Complete Date of service/time: 12/10/2020 10:03:06 AM Name: MR. LENCHO ALEJO Date of : 1990 Age: 30 years Gender: M ? Clinical Indication Assessment for toe nail removal. ? TECHNIQUE -------- An arterial physiological examination was performed, including measurement of blood pressures using continuous wave Doppler and recording of plethysmographic with or without Doppler waveforms at the below-mentioned limb segments. ? FINDINGS -------- RIGHT SIDE AT REST ? Right Doppler Waveforms Dorsalis pedis: Triphasic. Post tibial: Triphasic. ? Right Pressures Brachial: 110 mmHg Ankle dorsalis pedis: 135 mmHg GEOFFREY: 1.23 Ankle posterior tibial: 135 mmHg GEOFFREY: 1.23 Digit: 122 mmHg ? Right PVR Waveforms Ankle: Normal. Digit: Normal. ? LEFT SIDE AT REST ? Left Doppler Waveforms Dorsalis pedis: Triphasic. Post tibial: Triphasic. ? Left Pressures Brachial: 109 mmHg Ankle dorsalis pedis: 124 mmHg GEOFFREY: 1.13 Ankle posterior tibial: 124 mmHg GEOFFREY: 1.13 Digit: 120 mmHg ? Left PVR Waveforms Ankle: Normal. Digit: Normal. ? IMPRESSION ? RIGHT SIDE ? Resting right ankle brachial index: 1.23 Right toe brachial index: 1.11 ? Normal ankle brachial index at rest in the right leg. Normal toe brachial index at rest in the right leg. ? Right ankle: Normal at rest. ? LEFT SIDE ? Resting left ankle brachial index: 1.13 Left toe brachial index: 1.09 ? Normal ankle brachial index at rest in the left leg. Normal toe brachial index at rest in the left leg. ? Left ankle: Normal at rest. ? Technologist: Brittni Darnell T, [facility] Ordering physician: MARTINA SOFIA ? Interpreting physician: Moises Rahman MD Dermatological: B/l hallux medial nail border is ingrowing without infection. There is no pain to left hallux. There is pain to right hallux medial nail border. No ingrown to lateral nail border. Musculoskeletal/Ortho paedic: Patient has pain to palpation of right hallux medial nail border ASSESSMENT: (L60.0) Ingrown toenail (primary encounter diagnosis) PLAN: 1. History and physical examination completed today. 2. Discussed ingrowing toenail of b/l hallux medial nail border R>L. He would like to proceed with matrixectomy of right hallux Offered left hallux but he has elected to monitor. 3. I reviewed pvr. He has adequate perfusion. 4. Discussed risk of slow healing due to smoking or possible use of humira. Offered patient chance to wait until possible clearance from rheumatology. He states pain is too severe and wishes to take any associated risk by removing the toenail medial border today. 5. All r/b/a discussed. Patient consents to proceed with matrixectomy of right hallux medial nail border Discussed risks of toenail procedure not limited to infection, pain, swelling, bleeding, painful scarring, recurrence, need for revised procedure. Patient consented to proceed. Patient was properly identified by name and procedure. The right hallux was then injected with 3 cc of 1% lidocaine plain. The toe was then prepped and draped in the usual aseptic technique. A digital tournicot was applied to the (more content not included)... Normal [facility] CNPNon 12-19-2020 CNPN Telephone (PODIWS) LENCHO ALEJO ([id number]) 1990 M Date Time Provider Department 12/19/20 MARTINA SOFIA During your visit today, we recorded the following information about you: Debbie Ross Ma 12/19/2020 9:35 AM Signed Patient called in for results of PVR and to ask if he can schedule toenail removal? He can be contacted on home phone number. Patient aware physician is out of the office until 12/23/2020 and he may not address until his return. Martina Sofia DPM 12/19/2020 9:35 PM Signed Yes, please tell patient that his circulation is normal. He can scheule to have his nail removed CAPRICE Rodríguez Ma 12/22/2020 9:49 AM Signed Patient informed of information below. Patient voiced understanding. Allergies As of Date: 12/19/2020 (No Known Allergies) Date Reviewed: 12/10/2020 Reviewed by: Dulce Musa Ma - Fully Assessed Reason for Visit: Results [95] Prescriptions as of 12/22/2020 - HUMIRA,CF, PEN 40 mg/0.4 mL pen kit INJECT 40 MG INTO THE SKIN EVERY 14 DAYS Problem List As Of Date: 12/19/2020 (None) Encounter Status:Closed by DULCE MUAS MA on 12/22/20 [facility] CNOVon 12-10-2020 CNOV Office Visit (PODIWS ) SAPNALENCHO ([id number]) 1990 M Date Time Provider Department 12/10/20 9:15 AM MARTINA SOFIA During your visit today, we recorded the following information about you: Dulce Musa Josselin 12/10/2020 12:32 PM Signed AMB ROOMING INTAKE FLOWSHEET DATA Risk Screening Do you have concerns about personal safety or safety in the home?: No Pain Pain Level: 8 (5-8/10) Pain Location: Other: See Comment (R hallux) Description: Sore Frequency: Intermittent Intervention/Comfort measure: Relaxation Patient presents with: Right Great Toe - New, Ingrown Nail Martina Sofia DPM 12/10/2020 12:32 PM Signed Consultation requested by Dr. Lucas for an opinion regarding ingrowing toenail of right hallux. My final recommendations will be communicated back to the requesting physician by way of shared Medical record or letter to requesting physician via US mail. Initial Podiatric Office Visit: Chief Complaint: This 30 year old male who presents with chief complaint:ingrowing toenail of right hallux HPI Patient presents to clinic for evaluation of right hallux. Patient has on/off ingrowing toenail of right hallux medial nail border. He states there is pain, worse with pressure. He denies any redness or drainage. He does feel he may have the beginning stages of ingrowing toenail of left hallux. PAIN EVALUATION 12/10/2020 0917 Pain Level: 8 5-8/10 Pain Location: Other: See Comment R hallux Description: Sore Frequency: Intermittent Intervention/Comfort measure: Relaxation No results found for: HBA1C PCP: No primary care provider on file. History reviewed. No pertinent past medical history. Current Outpatient Medications Medication Sig - HUMIRA,CF, PEN 40 mg/0.4 mL pen kit INJECT 40 MG INTO THE SKIN EVERY 14 DAYS No current facility-administered medications for this visit. ALLERGIES No Known Allergies History reviewed. No pertinent surgical history. History reviewed. No pertinent family history. Social History Tobacco Use - Smoking status: Current Every Day Smoker Packs/day: 0.50 - Smokeless tobacco: Never Used Substance Use Topics - Alcohol use: Not Currently - Drug use: Not on file REVIEW OF SYSTEMS GENERAL: Negative for Malaise, significant weight loss, fever RESPIRATORY: Negative for cough, wheezing and shortness of breath CARDIOVASCULAR: Negative for chest pain, leg swelling and palpitations GI: Negative for abdominal discomfort, blood in stools or black stools and change in bowel habits : Negative for dysuria, frequency and incontinence MUSCULOSKELETAL: Negative for joint pain or swelling, back pain, and muscle pain. SKIN: Negative for lesions, rash, and itching. HEMATOLOGY/LYMPHOLOGY Negative for prolonged bleeding, bruising easily, and swollen nodes. ENDOCRINE: Negative for cold or heat intolerance, polyuria, polydipsia and goiter. NEURO: negative Physical Exam: Constitutional: Pt is a well developed 30 year old male who is alert, oriented and cooperative Eyes: Following during examination. No redness or drainage. Respiratory: RR normal and nonlabored. Even breathing. No evidence of distress or shortness of breath. Psychology: Patient is engaged during conversation. Normal affect and mood. Does not appear depressed or anxious during encounter. Vascular: Dorsalis pedis and posterior tibial pulses faintly palpable as b/l Capillary Fill time < 5 seconds to digits 1-5 b/l Skin temperature warm to cool proximal to distal b/l Hair growth present to digits Neurological: intact light touch/epicritic sensation b/l intact protective sensation no significant neurological deficits Dermatological: B/l hallux medial border is ingrowing without infection. Webspaces clean and dry 1-4 b/l. Skin appears well hydrated and supple. good color, texture, turgor. No open lesions present. No callosities present. Radiographs: n/a ASSESSMENT: (R09.89) Diminished pulses in lower extremity (primary encounter diagnosis) (L60.0) Ingrown toenail PLAN: 1. History and physical examination performed. 2. Discussed ingrowing toenail of b/l hallux. No signs of infection present. Discussed options to include matrixectomy of medial and/or Lateral border. 3. Patient is a smoker with faint pulses. Will get pvr prior to any attempted removal. 4. Will call patient with results. 5. Nail with no signs of infection. No need for antibiotic Martina Sofia DPM Podiatry [address] [facility] [address] Dept: [phone] Dept Referring Provider: MICHELINE LUCAS [[id number]] Allergies As of Date: 12/10/2020 (No Known Allergies) Date Reviewed: 12/10/2020 Reviewed by: Dulce Musa Ma - Fully Assessed Reason for Visit: New [[id number]] Ingrown Nail [765] Primary Visit Diagnosis:Diminished pulses in lower extrem (more content not included)... Normal [facility] CNOVon 10-19-2020 CNOV Office Visit (UCWSTR ) LENCHO ALEJO ([id number]) 1990 M Date Time Provider Department 10/19/20 12:00 PM [facility] During your visit today, we recorded the following information about you: Temperature Pulse Respiration Blood pressure 97.7 degrees 64/minute 14/minute 112/70 Weight 77.6 kg Micheline Lucas PA-C 10/19/2020 3:20 PM Signed This note was created using [employer]. Subjective Lencho Elizabeth Sapna is a 30 year old male. HPI Presents with left ear pressure and decreased hearing for 1 day. He states he went swimming yesterday and thinks he got some water in his ear. He has had earwax flushed out in the past as well. No congestion or cough. No URI symptoms. His right great toe has been painful over the past couple weeks as well. He thinks he may have an ingrown toenail. No injury or trauma. Review of Systems All other systems reviewed and are negative. History reviewed. No pertinent past medical history. Current Outpatient Medications Medication Sig Dispense Refill - HUMIRA,CF, PEN 40 mg/0.4 mL pen kit INJECT 40 MG INTO THE SKIN EVERY 14 DAYS No current facility-administered medications for this visit. History reviewed. No pertinent surgical history. History reviewed. No pertinent family history. Social History Tobacco Use - Smoking status: Current Every Day Smoker - Smokeless tobacco: Never Used Substance Use Topics - Alcohol use: Not on file - Drug use: Not on file Objective BP 112/70 Pulse 64 Temp 36.5 ?C (97.7 ?F) Resp 14 Wt 77.6 kg (171 lb) SpO2 98% Physical Exam Vitals reviewed. Constitutional: Appearance: Normal appearance. HENT: Head: Normocephalic and atraumatic. Left Ear: There is impacted cerumen. Ears: Comments: Cerumen impaction in the left external auditory canal. After cleared he does have an abrasion to the ear canal with some erythema. TM is normal. Right side unremarkable. Musculoskeletal: Comments: Exam of the right great toe reveals an ingrowing toenail. There is no erythema or swelling or sign of acute infection. Skin: General: Skin is warm and dry. Neurological: Mental Status: He is alert. Assessment and Plan ASSESSMENT/PLAN: 1. Ingrown toenail - ICD9: 703.0, ICD10: L60.0 (primary diagnosis) We will have him follow-up with podiatry. It does not appear infected today. Discussed red flags to be seen again here in the meantime. He is agreeable. - CONSULT TO PODIATRY 2. Impacted cerumen of left ear - ICD9: 380.4, ICD10: H61.22 This was flushed by nursing staff and patient feels much improved. I did send in ofloxacin as he does have an abrasion to the ear canal to prevent infection. Micheline Lucas PA-C Referring Provider: SELF [[id number]] Allergies As of Date: 10/19/2020 (No Known Allergies) Date Reviewed: 10/19/2020 Reviewed by: Xin Olivera - Fully Assessed Reason for Visit: Ear Problem [38] Cmt: left ear pressure x 1 day, great toe painful and swollen x couple weeks Primary Visit Diagnosis:Ingrown toenail [L60.0] Other Visit Diagnosis:Impacted cerumen of left ear [H61.22] Order(s):CONSULT TO PODIATRY [9034] Order #: [id number]: 1 FUTURE ofloxacin (FLOXIN) 0.3 % otic solutionUse 5 Drops in the left ear twice daily for 7 days.Disp: 1 BottleRfl: 0 Prescriptions as of 10/19/2020 - LINDA NUR, PEN 40 mg/0.4 mL pen kit INJECT 40 MG INTO THE SKIN EVERY 14 DAYS - ofloxacin (FLOXIN) 0.3 % otic solution Use 5 Drops in the left ear twice daily for 7 days. Problem List As Of Date: 10/19/2020 (None) Prescriptions ordered this encounter Disp Refills Start End OFLOXACIN 0.3 % EAR DROPS 1 Sixto* 0 10/19/2020 10/26/2020 Route: LEFT EAR Sig: Use 5 Drops in the left ear twice daily for 7 days. Encounter Status:Closed by MICHELINE LUCAS on 10/19/20 Normal [facility] Vital Signs Date Time Vital Sign Value Performing Clinician Facility 09-20-2023 17:05-0400 Diastolic Blood Pressure Non-Invasive 78 mm[Hg] LISETTE RG MD [address] [place] [address] 09-20-2023 17:05-0400 Heart rate 58 /min LISETTE RG MD [address] [place] [address] 09-20-2023 17:05-0400 Respiratory rate 16 /min LISETTE RG MD [address] [place] [address] 09-20-2023 17:05-0400 Systolic Blood Pressure Non-Invasive 124 mm[Hg] LISETTE RG MD [address] [place] [address] 09-20-2023 14:14-0400 Body temperature 97.34 [degF] LISETTE RG MD [address] [place] [address] 09-20-2023 14:14-0400 Body weight 78 kg LISETTE RG MD [address] [place] [address] 09-20-2023 14:14-0400 Diastolic Blood Pressure Non-Invasive 72 mm[Hg] LISETTE RG MD [address] [place] [address] 09-20-2023 14:14-0400 Heart rate 67 /min LISETTE RG MD [facility] 09-20-2023 14:14-0400 Respiratory rate 16 /min LISETTE RG MD [facility] 09-20-2023 14:14-0400 Systolic Blood Pressure Non-Invasive 124 mm[Hg] LISETTE RG MD [facility] 09-29-2021 13:24-0400 Diastolic blood pressure 72 mm[Hg] [facility] Work Phone: 09-29-2021 13:24-0400 Heart rate 80 /min [facility] Work Phone: 09-29-2021 13:24-0400 Respiratory rate 15 /min [facility] Work Phone: 09-29-2021 13:24-0400 SaO2% (BldA) [Mass fraction] 98 % [facility] Work Phone: 09-29-2021 13:24-0400 Systolic blood pressure 115 mm[Hg] [facility] Work Phone: 09-29-2021 10:38-0400 Body height 187.96 cm [facility] Work Phone: 09-29-2021 10:38-0400 Body mass index (BMI) [Ratio] 20.7 kg/m2 [facility] Work Phone: 09-29-2021 10:38-0400 Body temperature 97.9 [degF] [facility] Work Phone: 09-29-2021 10:38-0400 Body weight 73.48 kg [facility] Work Phone: Encounters Encounter Date Encounter Type Care Provider Facility Start: 08-14-2024 End: 08-14-2024 Telephone encounter Sonya Pavon PA-C Work Phone: [facility] Start: 07-25-2024 End: 07-25-2024 Refill Sonya A Carla PA-C Work Phone: [facility] Start: 07-11-2024 End: 07-11-2024 ambulatory [facility] Start: 07-11-2024 End: 07-11-2024 Office outpatient visit 25 minutes Sonya Pavon PA-C [facility] Phone[facility] Comment on above: Psoriasis vulgaris ( Primary Dx) Start: 04-03-2024 End: 04-03-2024 Refill Meena Nock PA-C Work Phone: [facility] Comment on above: Psoriasis vulgaris; Encounter for long-term (current) use of high-risk medication Start: 03-26-2024 End: 03-30-2024 ambulatory LENCHO FIGUEREDO APRN-ACCOUNTS RECEIVABLE ASSISTANT Facility:A Start: 03-19-2024 End: 03-19-2024 Refill Sonya A Bollas PA-C Work Phone: [facility] Start: 12-20-2023 End: 12-20-2023 Office outpatient visit 25 minutes Sonya Magali Bollas PA-C Work Phone: [facility] Comment on above: Psoriasis vulgaris ( Primary Dx); Encounter for long-term (current) use of high-risk medication; Encounter for screening for respiratory tuberculosis; Screening for viral disease Start: 12-20-2023 End: 12-20-2023 ambulatory [facility] Start: 09-20-2023 End: 09-20-2023 Emergency department patient visit LISETTE RG MD [facility] Start: 04-26-2023 Refill Sonya A Bollas PA-C Work Phone: [facility] Start: 02-23-2023 End: 02-23-2023 Office outpatient visit 15 minutes Meena Bains PA Work Phone: [facility] Comment on above: Psoriasis vulgaris; Encounter for long-term (current) use of high-risk medication Start: 06-30-2022 End: 06-30-2022 Office outpatient visit 25 minutes Sonya Andres PA-C Work Phone: [facility] Comment on above: Encounter for long-t erm (current) use of high-risk medication (Primary Dx); Psoriasis vulgaris; Encounter for screening for respiratory tuberculosis; Screening for viral disease; Screening examination for pulmonary tuberculosis; Encounter for long-term current use of high risk medication Start: 06-09-2022 Refill Sonya Andres MD [facility] Start: 11-05-2021 End: 11-05-2021 Patient encounter procedure DICK CLEMENTS [employer] [facility] Start: 09-29-2021 End: 09-29-2021 Emergency department patient visit [facility] Start: 09-08-2021 End: 09-08-2021 Patient encounter procedure MOI LORD MD [facility] Procedures Date Procedure Procedure Detail Performing Clinician Start: 10-29-2021 Bilateral vasectomy JOSELYN CLEMENTS OIL EXPLORATION ENGINEERArzeda H/O: vasectomy S/P vasectomy( Confirmed ) DICK CLEMENTS OIL EXPLORATION ENGINEERArzeda Viral antigen assay Plan of Treatment Date Care Activity Detail Author Start: 2064 RSV Immunization for Adults (1 - 1-dose 75+ series) RSV Immunization for Adults (1 - 1-dose 75+ series) [facility] Start: 2049 RSV Immunization age d 60 or older (1 - 1-dose 60+ series) RSV Immunization aged 60 or older (1 - 1-dose 60+ series) [facility] Start: 04-25-2039 Zoster Vaccines (1 o f 2) Zoster Vaccines (1 of 2) [facility] Start: 09-02-2031 DTaP/Tdap/Td Vaccine s (2 - Td or Tdap) DTaP/Tdap/Td Vaccines (2 - Td or Tdap) [facility] Start: 01-14-2025 End: 01-14-2025 Patient encounter procedure 01/14/2025 3:40 PM EST Office Visit [facility] [address] [place] [phone] Sonya Pavon PA-C [address] [place] [id number] [facility] Start: 10-22-2024 Influenza vaccination Influenz a Vaccine (Season Ended) [facility] Start: 06-21-2024 End: 06-21-2024 Patient encounter procedure 06/21/2024 4:00 PM EDT Office Visit [facility] [address] [place] [phone] Sonya Andres PA-C [address] [place] [id number] [facility] Start: 12-20-2023 End: 12-19-2024 CBC W Auto Differential panel - Blood CBC auto differential Lab Routine Encounter for long-term (current) use of high-risk medication Expected: 12/20/2023 (Approximate), Expires: 12/19/2024 [facility] Work Phone: Comment on above: Expected: 12/20/2023 (Approximate), Expires: 12/19/2024 Start: 12-20-2023 End: 12-19-2024 Comprehensive metabolic 1998 panel - Serum or Plasma Comprehensive metabolic panel Lab Routine Encounter for long-term (current) use of high-risk medication Expected: 12/20/2023 (Approximate), Expires: 12/19/2024 [facility] Comment on above: Expected: 12/20/2023 (Approximate), Expires: 12/19/2024 Start: 12-20-2023 End: 12-19-2024 Hepatitis A virus IgM Ab [Presence] in Serum or Plasma by Immunoassay Hepatitis A antibody, IgM Lab Routine Encounter for long-term (current) use of high-risk medication Screening for viral disease Expected: 12/20/2023 (Approximate), Expires: 12/19/[address] [facility] [employer] Comment on above: Expected: 12/20/2023 (Approximate), Expires: 12/19/2024 Start: 12-20-2023 End: 12-19-2024 Hepatitis B virus core IgM Ab [Presence] in Serum or Plasma by Immunoassay Hepatitis B core antibody, IgM Lab Routine Encounter for long-term (current) use of high-risk medication Screening for viral disease Expected: 12/20/2023 (Approximate), Expires: 12/19/[address] [facility] [employer] Comment on above: Expected: 12/20/2023 (Approximate), Expires: 12/19/2024 Start: 12-20-2023 End: 12-19-2024 Hepatitis B virus surface Ab [Units/volume] in Serum or Plasma by Immunoassay Hepatitis B surface antibody Lab Routine Encounter for long-term (current) use of high-risk medication Screening for viral disease Expected: 12/20/2023 (Approximate), Expires: 12/19/[address] [facility] [employer] Comment on above: Expected: 12/20/2023 (Approximate), Expires: 12/19/2024 Start: 12-20-2023 End: 12-19-2024 Hepatitis B virus surface Ag [Presence] in Serum or Plasma by Immunoassay Hepatitis B surface antigen Lab Routine Encounter for long-term (current) use of high-risk medication Screening for viral disease Expected: 12/20/2023 (Approximate), Expires: 12/19/[address] [facility] [employer] Comment on above: Expected: 12/20/2023 (Approximate), Expires: 12/19/2024 Start: 12-20-2023 End: 12-19-2024 Hepatitis C virus Ab [Presence] in Serum or Plasma by Immunoassay Hepatitis C antibody Lab Routine Encounter for long-term (current) use of high-risk medication Screening for viral disease Expected: 12/20/2023 (Approximate), Expires: 12/19/[address] [facility] [employer] Comment on above: Expected: 12/20/2023 (Approximate), Expires: 12/19/2024 Start: 12-20-2023 End: 12-19-2024 HIV 1+2 Ab+HIV1 p24 Ag [Presence] in Serum or Plasma by Immunoassay HIV-1 and HIV-2 Antigen-Antibody Screen Lab Routine Encounter for long-term (current) use of high-risk medication Screening for viral disease Expected: 12/20/2023 (Approximate), Expires: 12/19/2024 [facility] Comment on above: Expected: 12/20/2023 (Approximate), Expires: 12/19/2024 Start: 12-20-2023 End: 12-19-2024 QUANTIFERON TB GOLD QUANTIFERON TB GOLD Lab Routine Encounter for long-term (current) use of high-risk medication Encounter for screening for respiratory tuberculosis Expected: 12/20/2023 (Approximate), Expires: 12/19/2024 [facility] Comment on above: Expected: 12/20/2023 (Approximate), Expires: 12/19/2024 Start: 10-23-2023 COVID-19 Vaccine ( season) COVID-19 Vaccine () [facility] Start: 10-23-2023 Influenza vaccination Influenza Vacc ine (#1) [facility] Start: 08-29-2023 End: 08-29-2023 Patient encounter procedure 08/29/2023 4:00 PM EDT Office Visit [facility] [address] [address] [place] [id number] Sonya Andres PA-C [address] [place] [address] [facility] Start: 01-04-2023 End: 01-04-2023 Patient encounter procedure 01/04/2023 Office Visit Dermatology Sonya Andres PA-C [address] [place], [place] [id number] [facility] Start: 10-22-2022 Influenza vaccination S [facility] Start: 06-30-2022 End: 06-30-2022 Patient encounter procedure 06/30/2022 Office Visit Dermatology Sonya Andres PA-C [address] [place], [place] [id number] [facility] Start: 06-30-2022 End: 07-01-2023 CBC W Auto Differential panel - Blood CBC auto differential Lab Routine Encounter for long-term (current) use of high-risk medication Expected: 06/30/2022 (Approximate), Expires: 07/01/[address] [facility] [employer] [facility] Work Phone: Comment on above: Expected: 06/30/2022 (Approximate), Expires: 07/01/2023 Start: 06-30-2022 End: 07-01-2023 Comprehensive metabolic 1998 panel - Serum or Plasma Comprehensive metabolic panel Lab Routine Encounter for long-term (current) use of high-risk medication Expected: 06/30/2022 (Approximate), Expires: 07/01/[address] [facility] [employer] Comment on above: Expected: 06/30/2022 (Approximate), Expires: 07/01/2023 Start: 06-30-2022 End: 07-01-2023 Hepatitis A virus IgM Ab [Presence] in Serum or Plasma by Immunoassay Hepatitis A antibody, IgM Lab Routine Encounter for long-term (current) use of high-risk medication Screening for viral disease Expected: 06/30/2022 (Approximate), Expires: 07/01/[address] [facility] [employer] Comment on above: Expected: 06/30/2022 (Approximate), Expires: 07/01/2023 Start: 06-30-2022 End: 07-01-2023 Hepatitis B virus core IgM Ab [Presence] in Serum or Plasma by Immunoassay Hepatitis B core antibody, IgM Lab Routine Encounter for long-term (current) use of high-risk medication Screening for viral disease Expected: 06/30/2022 (Approximate), Expires: 07/01/[address] [facility] [employer] Comment on above: Expected: 06/30/2022 (Approximate), Expires: 07/01/2023 Start: 06-30-2022 End: 07-01-2023 Hepatitis B virus surface Ab [Units/volume] in Serum or Plasma by Immunoassay Hepatitis B surface antibody Lab Routine Encounter for long-term (current) use of high-risk medication Screening for viral disease Expected: 06/30/2022 (Approximate), Expires: 07/01/2023 [employer] Comment on above: Expected: 06/30/2022 (Approximate), Expires: 07/01/2023 Start: 06-30-2022 End: 07-01-2023 Hepatitis B virus surface Ag [Presence] in Serum or Plasma by Immunoassay Hepatitis B surface antigen Lab Routine Encounter for long-term (current) use of high-risk medication Screening for viral disease Expected: 06/30/2022 (Approximate), Expires: 07/01/2023 [employer] Comment on above: Expected: 06/30/2022 (Approximate), Expires: 07/01/2023 Start: 06-30-2022 End: 07-01-2023 Hepatitis C virus Ab [Presence] in Serum or Plasma by Immunoassay Hepatitis C antibody Lab Routine Encounter for long-term (current) use of high-risk medication Screening for viral disease Expected: 06/30/2022 (Approximate), Expires: 07/01/2023 [employer] Comment on above: Expected: 06/30/2022 (Approximate), Expires: 07/01/2023 Start: 06-30-2022 End: 07-01-2023 HIV 1+2 Ab+HIV1 p24 Ag [Presence] in Serum or Plasma by Immunoassay HIV-1 and HIV-2 Antigen-Antibody Screen Lab Routine Encounter for long-term (current) use of high-risk medication Screening for viral disease Expected: 06/30/2022 (Approximate), Expires: 07/01/2023 [employer] Comment on above: Expected: 06/30/2022 (Approximate), Expires: 07/01/2023 Start: 06-30-2022 End: 07-01-2023 QUANTIFERON TB GOLD QUANTIFERON TB GOLD Lab Routine Encounter for long-term (current) use of high-risk medication Encounter for screening for respiratory tuberculosis Expected: 06/30/2022 (Approximate), Expires: 07/01/2023 [employer] Comment on above: Expected: 06/30/2022 (Approximate), Expires: 07/01/2023 Start: 09-29-2021 [facility] Work Phone: Start: 2008 DTaP/Tdap/Td Vaccine s (1 - Tdap) DTaP/Tdap/Td Vaccines (1 - Tdap) [facility] Start: 2008 Hepatitis B Vaccines (1 of 3 - 19+ 3-dose series) Hepatitis B Vaccines (1 of 3 - 19+ 3-dose series) [facility] Start: 2008 Pneumococcal Vaccine : Pediatrics (0 to 5 Years) and At-Risk Patients (6 to 49 Years) (1 of 2 - PCV) Pneumococcal Vaccine: Pediatrics (0 to 5 Years) and At-Risk Patients (6 to 49 Years) (1 of 2 - PCV) [facility] Start: 04-25-2007 Diabetes mellitus screening Diabetes Screening [facility] Start: 2002 Varicella vaccination Varicell a Vaccines (1 of 2 - 13+ 2-dose series) [facility] Start: 2001 Depression Screening Depression Scre ening [facility] Start: 04-25-1995 Pneumococcal Vaccine : Pediatrics (0 to 5 Years) and At-Risk Patients (6 to 64 Years) (1 - PCV) Pneumococcal Vaccine: Pediatrics (0 to 5 Years) and At-Risk Patients (6 to 64 Years) (1 - PCV) [facility] Start: 04-25-1995 Pneumococcal Vaccine : Pediatrics (0 to 5 Years) and At-Risk Patients (6 to 64 Years) (1 of 2 - PCV) Pneumococcal Vaccine: Pediatrics (0 to 5 Years) and At-Risk Patients (6 to 64 Years) (1 of 2 - PCV) [facility] Start: 1990 MMR Vaccines (1 of 1 - Standard series) MMR Vaccines (1 of 1 - Standard series) [facility] Start: 1990 Varicella vaccination Varicell a Vaccines (1 of 2 - 2-dose childhood series) [facility] Start: 1989 COVID-19 Vaccine (#1) COVID-19 Vacci ne (#1) [facility] Start: 1989 Hepatitis B Vaccines (1 of 3 - 3-dose series) Hepatitis B Vaccines (1 of 3 - 3-dose series) [facility] Start: 1989 Lipid panel Lipid Panel [facility] Microscopic observat ion [Identifier] in Unspecified specimen by Gram stain Gram Stain [facility] Work Phone: Patient Education ED Wound Check (Infection) [facility] Work Phone: Patient referral [facility] Work Phone: Wound Culture Wound Culture [facility] Work Phone: [facility] Work Phone: Immunizations Immunization Date Immunization Notes Care Provider Marti martinshant 09-01-2021 tetanus toxoid, redu wiley diphtheria toxoid, and acellular pertussis vaccine, adsorbed MOI LORD MD [facility] Payers Date Payer Category Payer Medicaid [place] [employer] [employer] [facility] [id number] 2022-Present [phone] [address] [place] [address] Medicaid HMO [id number] 2022 Commercial Managed C are - HMO [employer] [id number] 2022 Unknown [employer] [id number] 2022-Present [address] [place] [address] Commercial [id number] 2022 Unknown [id number] 1989 Unknown [id number] 1989 Unknown [id number] Unknown [facility] HEALTH PLAN [id number] Social History Date Type Detail Facility Start: 03-06-2019 Tobacco smoking status Light t obacco smoker (finding) [facility] Sex Assigned At Sex [facility] Start: 09-29-2021 Tobacco smoking stat [facility] Unknown if ever smoked [facility] Work Phone: Start: 1990 Sex Assigned At Male [facility] History of tobacco use Cigarette Smoker S [facility] Start: 12-07-2021 End: 12-20-2023 Alcohol intake Current drinker of alcohol (finding) [facility] Start: 1990 Sex Assigned At Not on file [facility] Start: 06-20-2022 End: 06-30-2022 Exposure to SARS-CoV-2 (event) Not sure [facility] Start: 12-07-2021 End: 12-20-2023 History of Social function [facility] Start: 12-07-2021 End: 12-20-2023 Tobacco use panel [facility] Start: 09-21-2021 Sex Male (finding) [facility] Ishmael malik Functional Status Date Assessment Result Facility 09-20-2023 Functional Status Independent [facility] Mental Status Date Assessment Result Facility 09-20-2023 Mental Status Orientation Oriented x 4 [facility] 09-29-2021 Cognitive function Level Of Cons ciousness Awake;Alert;Appropriate;Follow s Commands [facility] Work Phone: Clinical Notes 10-19-2020 to 08-14-2024 Telephone Encounter - Akanksha Sargent PharmD - 08/14/2024 4:10 PM EDTTelephone Encounter - Akanksha Sargent, PharmD - 08/14/2024 4:10 PM Simeon Pavon PA-C - 07/11/2024 4:00 PM EDT Note Date & Type Note Facility 08-14-2024 Telephone encounter Note SUBJECTIVE Lencho Alejo is a 34 year old Male who was referred to [facility] for clinical management services for Zoryve 0.3 %. Diagnosis Psoriasis vulgaris L40.0 OBJECTIVE Medications: Skyrizi Pen 150 MG/ML SOAJ SC Temovate 0.05 % CREA EX Zoryve 0.3 % CREA EX Allergies: No Known Allergies Medical History & Comorbidities: Problem list has been reviewed in the EHR ASSESSMENT / PLAN Zoryve 0.3 % Expectations and Goals of therapy Goals of therapy include reduce body surface area coverage, reduce pain/itching, and reduce flaring. Disease state education Counseled on general disease state management strategies. Emphasized that Psoriasis is a chronic medical condition that requires consistent adherence to prescribed medication in order to achieve treatment goals. Administration Apply Zoryve to affected areas once daily and rub in completely. Wash hands after application, unless treatment intended for hands. The patient will apply the medication topically once daily. I do not foresee any barriers as the patient is comfortable with application. The patient is up to date with vaccinations. Storage/Disposal Counseled on proper storage of medication at room temperature (77F max). Side effects Educated that common side effects include diarrhea, headache, trouble sleeping, nausea, application site pain, upper respiratory tract infections, and urinary tract infections. Contact Advised when to contact pharmacy or provider. Provided with direct number to clinical pharmacist for questions or concerns prior to scheduled follow up. The patient was oriented to the pharmacy s services upon their initial fill and it was communicated that they can participate in this plan of care by speaking with a Pharmacist which is offered during each reassessment. Adherence The patient needs to apply Zoryve once daily to affected areas as prescribed. Monitoring and follow up Reviewed therapy monitoring parameters and importance to maintain follow-up lab and provider visits. The patient is aware to let us know if any issues or reactions occur while on this medication so that we can let the provider know as well as any changes in medications so we can assess for interactions and such. Pharmacy Recommendations/Education/Other The patient expressed understanding of the above therapy plan and knows to reach out to us at [phone] M-F 8 AM - 5 PM. Akanksha Sargent Clinical Pharmacist [facility] [phone] [facility] 08-14-2024 Miscellaneous Notes SUBJECTIVE Lencho Alejo is a 34 year old Male who was referred to [facility] for clinical management services for Zoryve 0.3 %. Diagnosis Psoriasis vulgaris L40.0 OBJECTIVE Medications: Skyrizi Pen 150 MG/ML SOAJ SC Temovate 0.05 % CREA EX Zoryve 0.3 % CREA EX Allergies: No Known Allergies Medical History & Comorbidities: Problem list has been reviewed in the EHR ASSESSMENT / PLAN Zoryve 0.3 % Expectations and Goals of therapy Goals of therapy include reduce body surface area coverage, reduce pain/itching, and reduce flaring. Disease state education Counseled on general disease state management strategies. Emphasized that Psoriasis is a chronic medical condition that requires consistent adherence to prescribed medication in order to achieve treatment goals. Administration Apply Zoryve to affected areas once daily and rub in completely. Wash hands after application, unless treatment intended for hands. The patient will apply the medication topically once daily. I do not foresee any barriers as the patient is comfortable with application. The patient is up to date with vaccinations. Storage/Disposal Counseled on proper storage of medication at room temperature (77F max). Side effects Educated that common side effects include diarrhea, headache, trouble sleeping, nausea, application site pain, upper respiratory tract infections, and urinary tract infections. Contact Advised when to contact pharmacy or provider. Provided with direct number to clinical pharmacist for questions or concerns prior to scheduled follow up. The patient was oriented to the pharmacy s services upon their initial fill and it was communicated that they can participate in this plan of care by speaking with a Pharmacist which is offered during each reassessment. Adherence The patient needs to apply Zoryve once daily to affected areas as prescribed. Monitoring and follow up Reviewed therapy monitoring parameters and importance to maintain follow-up lab and provider visits. The patient is aware to let us know if any issues or reactions occur while on this medication so that we can let the provider know as well as any changes in medications so we can assess for interactions and such. Pharmacy Recommendations/Education/Other The patient expressed understanding of the above therapy plan and knows to reach out to us at [phone] M-F 8 AM - 5 PM. Akanksha Sargent Clinical Pharmacist [facility] [phone] documented in this encounter [facility] 07-11-2024 History of Presen t illness Narrative DATE OF SERVICE: 07/11/2024 PATIENT NAME: Lencho Alejo : 1990 AGE: 34 y.o. CLINIC NUMBER: [id number] Visit type: Established patient Chief Complaint Patient presents with Psoriasis (JY) Subjective HISTORY OF PRESENT ILLNESS: This is a 34 y.o. male who presents for F/u psoriasis; last seen 12/20/23 with Sonya Pavon PA-C. Stable since last visit. Currently treating with skyrizi injections and clobetasol ointment PRN. Patient self administers injections at home without complications. Start date 04/2021. Last injection 05/16/24. Last labs 01/12/24 WNL. 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 Admits redness, flaking, scaling. Denies itching, burning, Admits pain on the L elbow. Denies joint pain/ joint stiffness. Denies nail ridges, pitting, thickening, discoloration. Patient has had flares to his groin for years but never mentioned it. Patient states since the skyrizi injection it has cleared a little but gets worse after month 2 of the shot. Patient has been using clobetasol down there with little to no improvement. Today is a good day. Patient admits when it is severely flared, he is unable to have intercourse due to pain and even bleeding to the area. Patient states about 1 month ago he was diagnosed with Shingles and was treated with valtrex. Patient denies having shingles vaccine. Pt has previously failed Otezla and Humira. History of pacemaker/ defibrillator? No History of HIV/ Hep C? No Allergies to Lidocaine, Epinephrine, Latex or Adhesive? Yes, Latex Review of Systems There were no vitals filed for this visit. PHYSICAL EXAM GENERAL APPEARANCE:?Alert & oriented x3, pleasant. Well developed, well nourished. PSYCH: appropriate mood and affect DERMATOLOGY: (all measurements are in cm, unless otherwise noted) Skin Exam 1. PSORIASIS VULGARIS Generalized Erythematous plaque(s) and papule(s) with overlying white/silver scale of the elbows, palms, penis, and scrotum [x]Chronic []Acute []Stable [x]Flaring/Exacerbation Educated and reassured. Treatment options, risks, benefits, and expectations reviewed. Patient flares in the groin area. Patient advised to wear cotton gloves after lathering the clobetasol on his hands prior to going to bed. Zoryve given to patient. Start: -Zoryve cream ([facility] staff consulted regarding medication request and they will start working on PA) Apply to affected areas once daily. Stop using when clear. Repeat as needed for flares. Continue: -Skyrizi 150mg injections Q12 weeks. Pharmacy staff consulted to try and increase frequency to q 10 weeks. -clobetasol 0.05% ointment: Apply to affected areas BID x 2 weeks Stop using when clear. Repeat as needed for flares. Do not use on face, armpits, groin. Risks associated with longitudinal float operator topical steroid use reviewed in detail. Patient was advised that topical steroid is being used for short term relief and not as maintenance. Overuse of topical steroids can result in permanent skin thinning/atrophy, skin discoloration, unwanted hair growth, acne and/or stretch spangler/striae. Patient advised psoriasis is a chronic, multisystem inflammatory disease which most commonly affects the skin. Psoriasis can also affect the nails, joints and skin folds. Depending on the severity and location of the psoriasis, treatment includes topical steroids, topical vitamin D analogs, UV treatment, topical retinoids and systemic treatment. Systemic medications called biologics are injection medications that can be used to treat psoriasis. Biologics are selected on an individual basis with consideration of the patient's medical history and family history. Due to intertriginous region involvement, will consider tremfya at follow up if no improvement. Related Medications clobetasol (Temovate) 0.05 % ointment Apply to affected areas BID x 2 weeks Stop using when clear. Repeat as needed for flares. Do not use on face, armpits, groin. Follow up in about 6 months (around 01/11/2025) for psoriasis f/u. Sonya Pavon PA-C 07/11/24 4:48 PM documented in this encounter [facility] 04-03-2024 Telephone encounter Note Refill request received for Clobetasol 0.05% ointment. Last filled 02/23/2023 by Meena Bains PA-C. Patient last seen 12/20/2023 by Sonya Andres PA-C. Patient does have a follow up appointment scheduled w/ Sonya Andres PA-C on 06/21/2024. [facility] 04-03-2024 Miscellaneous Notes Refill request received for Clobetasol 0.05% ointment. Last filled 02/23/2023 by Meena Bains PA-C. Patient last seen 12/20/2023 by Sonya Andres PA-C. Patient does have a follow up appointment scheduled w/ Sonya Andres PA-C on 06/21/2024. documented in this encounter [facility] 03-19-2024 Telephone encounter Note Refill request received for Risankizumab-rzaa (Skyrizi Pen) 150 MG/ML solution auto-injector. Last filled 04/26/23 by Sonya Andres PA-C. Patient last seen 12/20/23 by Sonya Andres PA-C. Patient does have a follow up appointment scheduled 06/21/24 with Sonya Andres PA-C. [facility] 03-19-2024 Miscellaneous Notes Refill request received for Risankizumab-rzaa (Skyrizi Pen) 150 MG/ML solution auto-injector. Last filled 04/26/23 by Sonya Andres PA-C. Patient last seen 12/20/23 by Sonya Andres PA-C. Patient does have a follow up appointment scheduled 06/21/24 with Soyna Andres PA-C. documented in this encounter [facility] 12-20-2023 History of Presen t illness Narrative DATE OF SERVICE: 12/20/2023 PATIENT NAME: Lencho Alejo : 1990 AGE: 33 y.o. CLINIC NUMBER: [id number] Visit type: Established patient Chief Complaint Patient presents with Psoriasis (PKN) Subjective HISTORY OF PRESENT ILLNESS: This is a 33 y.o. male who presents for evaluation of psoriasis vulgaris; last seen 02/23/2023. Improved, stable since last visit. Currently treating with Skyrizi 150 mg injection every 12 weeks and clobetasol 0.05% ointment BID PRN. Patient self administers injections at home without complications. Start date 04/2021. Last injection was 11/16/2023. Last labs 07/01/2022. Denies flares currently. But does admit occasional flares to the hands and genitals. Admits improvement when using clobetasol. Admits redness, flaking, scaling occasionally to the hands. Denies itching, burning, pain. Denies any new or worsening joint pain/ joint stiffness. Denies nail ridges, pitting, thickening, discoloration. Patient has tried and failed Humira and Otezla previously. History of pacemaker/ defibrillator? No History of HIV/ Hep C? No Allergies to Lidocaine, Epinephrine, Latex or Adhesive? Yes, Latex. Review of Systems There were no vitals filed for this visit. PHYSICAL EXAM GENERAL APPEARANCE:?Alert & oriented x3, pleasant. Well developed, well nourished. PSYCH: appropriate mood and affect DERMATOLOGY: (all measurements are in cm, unless otherwise noted) 1. Psoriasis vulgaris Clear skin on exam [x]Chronic []Acute [x]Stable []Flaring/Exacerbation Educated and reassured. Treatment options, risks, benefits, and expectations reviewed. Patient doing well on skyrizi. Needs lab done. Papers handed to him. Script will not be refilled until labs complete. Continue: -Skyrizi 150 mg injection q12 weeks. -clobetasol 0.05% ointment: Apply to affected areas BID x 2 weeks Stop using when clear. Repeat as needed for flares. Do not use on face, armpits, groin. Risks associated with longitudinal float operator topical steroid use reviewed in detail. Patient was advised that topical steroid is being used for short term relief and not as maintenance. Overuse of topical steroids can result in permanent skin thinning/atrophy, skin discoloration, unwanted hair growth, acne and/or stretch spangler/striae. Patient advised psoriasis is a chronic, multisystem inflammatory disease which most commonly affects the skin. Psoriasis can also affect the nails, joints and skin folds. Depending on the severity and location of the psoriasis, treatment includes topical steroids, topical vitamin D analogs, UV treatment, topical retinoids and systemic treatment. Systemic medications called biologics are injection medications that can be used to treat psoriasis. Biologics are selected on an individual basis with consideration of the patient's medical history and family history. Related Medications clobetasol (Temovate) 0.05 % ointment Apply to affected areas BID x 2 weeks Stop using when clear. Repeat as needed for flares. Do not use on face, armpits, groin. 2. Encounter for long-term (current) use of high-risk medication Related Procedures CBC auto differential Comprehensive metabolic panel Hepatitis A antibody, IgM Hepatitis B core antibody, IgM Hepatitis B surface antibody Hepatitis B surface antigen Hepatitis C antibody HIV-1 and HIV-2 Antigen-Antibody Screen QUANTIFERON TB GOLD Related Medications clobetasol (Temovate) 0.05 % ointment Apply to affected areas BID x 2 weeks Stop using when clear. Repeat as needed for flares. Do not use on face, armpits, groin. 3. Encounter for screening for respiratory tuberculosis Related Procedures QUANTIFERON TB GOLD 4. Screening for viral disease Related Procedures Hepatitis A antibody, IgM Hepatitis B core antibody, IgM Hepatitis B surface antibody Hepatitis B surface antigen Hepatitis C antibody HIV-1 and HIV-2 Antigen-Antibody Screen Follow up in about 6 months (around 06/19/2024) for Psoriasis f/u. Sonya Andres PA-C 12/20/23 4:08 PM documented in this encounter [facility] 09-20-2023 Note ORIGINAL EXAMINATION: ONE XRAY VIEW OF THE CHEST09/20/2023 3:27 pm COMPARISON: None. HISTORY: ORDERING SYSTEM PROVIDED HISTORY: Reason for Exam: pain FINDINGS: The cardiomediastinal contours are normal. Vascular structures appear within normal limits. There is no consolidation. Focal density projects near the anterior margin of the left 5th rib. No pleural fluid or pneumothorax. No aggressive osseous lesions identified. IMPRESSION: No acute radiographic finding Density projecting near the anterior margin of the left 5th rib could relate to costochondral calcification, a nipple shadow artifact or parenchymal abnormality. Consider PA and lateral views of the chest to exclude pathology Interpreted by: Edenilson Perry MD Preliminary Report By: Edenilson Perry MD Electronically signed By Edenilson Perry MD Dictated Date: 09/20/2023 3:29:29 PM Prelim Date: 09/20/2023 3:31:07 PM Sign Date: 09/20/2023 3:31:07 PM Ordering Provider: [facility] 02-23-2023 History of Presen t illness Narrative DATE OF SERVICE: 02/23/2023 PATIENT NAME: Lencho Alejo : 1990 AGE: 32 y.o. CLINIC NUMBER: [id number] Visit type: Established patient Chief Complaint Patient presents with Psoriasis LV 06/30/2022 w Sonya Andres PA-C ([facility]) Subjective HISTORY OF PRESENT ILLNESS: This is a 32 y.o. male who presents for evaluation of psoriasis; last seen 06/30/2022. F/u psoriasis; last seen 06/30/2022. Unchanged since last visit. Currently treating with Skyrizi and Clobetasol Ointment. Patient self administers injections at home without complications. Last injection 02/14/2023. Last labs 07/01/2022. Denies flares. Denies redness, flaking, scaling. Admits itching, denies burning, pain. Denies joint pain/ joint stiffness. Denies nail ridges, pitting, thickening, discoloration. Patient has tried and failed Humira and Otezla previously. History of pacemaker/ defibrillator? No History of HIV/ Hep C? No Allergies to Lidocaine, Epinephrine, Latex or Adhesive? Yes, Latex. Review of Systems Orders Placed This Encounter Medications clobetasol (Temovate) 0.05 % ointment Sig: Apply to affected areas BID x 2 weeks Stop using when clear. Repeat as needed for flares. Do not use on face, armpits, groin. Dispense: 60 g Refill: 3 There were no vitals filed for this visit. PHYSICAL EXAM GENERAL APPEARANCE:?Alert & oriented x3, pleasant. Well developed, well nourished. PSYCH: appropriate mood and affect. DERMATOLOGY: (all measurements are in cm, unless otherwise noted) 1. Psoriasis vulgaris Erythematous plaque(s) and papule(s) with overlying white/silver scale [x]Chronic []Acute [x]Stable []Flaring/Exacerbation Patient advised psoriasis is a chronic, multisystem inflammatory disease which most commonly affects the skin. Psoriasis can also affect the nails, joints and skin folds. Depending on the severity and location of the psoriasis, treatment includes topical steroids, topical vitamin D analogs, UV treatment, topical retinoids and systemic treatment. Systemic medications called biologics are injection medications that can be used to treat psoriasis. Biologics are selected on an individual basis with consideration of the patient's medical history and family history. Continue: Skyrizi- q12 weeks. Clobetasol Ointment- Apply to affected areas BID x 2 weeks Stop using when clear. Repeat as needed for flares. Do not use on face, armpits, groin. Related Medications clobetasol (Temovate) 0.05 % ointment Apply to affected areas BID x 2 weeks Stop using when clear. Repeat as needed for flares. Do not use on face, armpits, groin. 2. Encounter for long-term (current) use of high-risk medication Related Medications clobetasol (Temovate) 0.05 % ointment Apply to affected areas BID x 2 weeks Stop using when clear. Repeat as needed for flares. Do not use on face, armpits, groin. Follow up in about 6 months (around 08/24/2023) for Psoriasis f/u. KASEY Blue 02/23/23 2:57 PM REFERRING MD: documented in this encounter [facility] 06-30-2022 History of Presen t illness Narrative DATE OF SERVICE: 06/30/2022 PATIENT NAME: Lencho Alejo : 1990 AGE: 32 y.o. CLINIC NUMBER: [id number] Visit type: Established patient Chief Complaint Patient presents with Psoriasis PRAVEEN 12/07/21 w/ Sonya Andres PA-C () Subjective HISTORY OF PRESENT ILLNESS: This is a 32 y.o. male who presents for F/u psoriasis; last seen 12/07/21. Improved since last visit. Currently treating with Skyrizi 150 mg and Clobetasol ointment PRN. Patient self administers injections at home without complications. Admits redness at injection site occasionally. Patient states it goes away in a couple days. Last injection 05/15/22. Next injection 08/15/22. Last labs 04/18/21. Denies current flares. Denies redness, flaking, scaling. Denies itching, burning, pain. Denies joint pain/ joint stiffness. Denies nail ridges, pitting, thickening, discoloration. Patient has tried and failed Humira and Otezla previously. Patient requested refill of Clobetasol ointment. History of pacemaker/ defibrillator? No History of HIV/ Hep C? No Allergies to Lidocaine, Epinephrine, Latex or Adhesive? No Review of Systems Orders Placed This Encounter Medications clobetasol (Temovate) 0.05 % ointment Sig: Apply to affected areas BID x 2 weeks Stop using when clear. Repeat as needed for flares. Do not use on face, armpits, groin. Dispense: 60 g Refill: 3 There were no vitals filed for this visit. PHYSICAL EXAM GENERAL APPEARANCE:?Alert & oriented x3, pleasant. Well developed, well nourished. PSYCH: appropriate mood and affect LYMPHATIC:no palpable cervical, supraclavicular or axillary adenopathy. DERMATOLOGY: (all measurements are in cm, unless otherwise noted) 1. Encounter for long-term (current) use of high-risk medication Related Procedures CBC auto differential Comprehensive metabolic panel Hepatitis B core antibody, IgM Hepatitis A antibody, IgM Hepatitis B surface antibody Hepatitis B surface antigen HIV-1 and HIV-2 Antigen-Antibody Screen Hepatitis C antibody QUANTIFERON TB GOLD Related Medications clobetasol (Temovate) 0.05 % ointment Apply to affected areas BID x 2 weeks Stop using when clear. Repeat as needed for flares. Do not use on face, armpits, groin. 2. Psoriasis vulgaris No psoriatic patches or plaques on exam [x]Chronic []Acute [x]Stable []Flaring/Exacerbation Educated and reassured. Treatment options, risks, benefits, and expectations reviewed. Continue: -skyrizi injections: inject under the skin q 12 weeks -clobetasol ointment: apply to affected areas BID x 2 weeks then prn flares. Don't apply to face armpits or groin. Risks associated with longitudinal float operator topical steroid use reviewed in detail. Related Medications clobetasol (Temovate) 0.05 % ointment Apply to affected areas BID x 2 weeks Stop using when clear. Repeat as needed for flares. Do not use on face, armpits, groin. 3. Encounter for screening for respiratory tuberculosis Related Procedures QUANTIFERON TB GOLD 4. Screening for viral disease Related Procedures Hepatitis B core antibody, IgM Hepatitis A antibody, IgM Hepatitis B surface antibody Hepatitis B surface antigen HIV-1 and HIV-2 Antigen-Antibody Screen Hepatitis C antibody 5. Screening examination for pulmonary tuberculosis 6. Encounter for long-term current use of high risk medication No follow-ups on file. Sonya Andres PA-C 06/30/22 3:56 PM REFERRING MD: documented in this encounter [facility] 06-14-2022 Miscellaneous Notes OV scheduled 06/30. Left message on voicemail for patient to call office back to schedule an OV. [facility] is requesting refills for Skyrizi. Patient last seen in November of 2021 with no follow up at this time. Thanks! documented in this encounter [facility] 06-14-2022 Telephone encounter Note OV scheduled 06/30. [facility] 06-09-2022 Telephone encounter Note Left message on voicemail for patient to call office back to schedule an OV. [facility] 06-09-2022 Telephone encounter Note [facility] is requesting refills for Skyrizi. Patient last seen in November of 2021 with no follow up at this time. Thanks! [facility] 04-06-2021 Note HNO ID: [id number] Author: Kacy Reeves MA Service: ? Author Type: Credit Risk Manager Type: Progress Notes Filed: 04/29/2021 11:11 AM Note Text: Patient presents with: Left Foot - Follow Up, Ingrown Toenail [facility] 02-25-2021 Note HNO ID: [id number] Author: Martina Sofia Service: ? Author Type: Physician Type: Progress Notes Filed: 02/25/2021 11:00 PM Note Text: Follow up podiatric office visit for: Chief Complaint: This 30 year old who presents for follow up:right hallux s/p matrixectomy to medial nail border Patient presents to clinic for evaluation of right great toe. He is s/p matrixectomy to medial nail border. He had been doing very well. He noticed some redness to the proximal nail fold recently with a loose piece of skin. He picked the nail and then since cutting the nail, he has noticed some redness and slight discharge. He is here to discuss the appearance of the right hallux. Patient does report some pain to his right hallux. He states the toe is slightly sore. PAIN EVALUATION 02/25/2021 1550 Pain Level: 3 Pain Location: Toe Description: Aching Duration Amount of Time: ? several Duration Units: Weeks Frequency: Intermittent Intervention/Comfort measure: Reposition;Relaxation No results found for: HBA1C PCP: No primary care provider on file. No past medical history on file. Current Outpatient Medications Medication Sig - HUMIRA,CF, PEN 40 mg/0.4 mL pen kit INJECT 40 MG INTO THE SKIN EVERY 14 DAYS No current facility-administered medications for this visit. ALLERGIES No Known Allergies No past surgical history on file. Physical Exam: Constitutional: Pt is a well developed 30 year old male who is alert, oriented, cooperative and in no apparent distress. OBJECTIVE: NVSI unchanged from previous visit. Dermatological: Right hallux medial nail border appears to be healing. There is slight pain noted to the medial nail border with slight redness and slight serous drainage. No evidence of spicule noted. Musculoskeletal/Orthopaedic: Patient has pain to palpation of right hallux medial nail border ASSESSMENT: (S91.109A) Open wound of toe, initial encounter (primary encounter diagnosis) PLAN: Patient is s/p matrixectomy of medial border of right hallux. The medial border appears to be healing as expected. Slight redness and drainage noted. I discussed options. We discussed placing patient on antibiotic and continuing with local wound care vs removing additional nail border. Patient has elected to start antibiotic. A wound culture was performed. I will have patient continue with local wound care. If condition fails to improve, consider removing additional medial border. Martina Sofia DPM [facility] 02-25-2021 Note HNO ID: [id number] Author: Charmaine Ruvalcaba RN Service: ? Author Type: ? Type: Progress Notes Filed: 02/25/2021 11:00 PM Note Text: AMB ROOMING INTAKE FLOWSHEET DATA Risk Screening Do you have concerns about personal safety or safety in the home?: No Pain Pain Level: 3 Pain Location: Toe Description: Aching Duration Amount of Time: (several) Duration Units: Weeks Frequency: Intermittent Intervention/Comfort measure: Reposition,Relaxation Patient presents with: Right Great Toe - Follow Up, Ingrown Toenail [facility] 02-02-2021 Note HNO ID: [id number] Author: Sadaf Gonsales RN Service: ? Author Type: Registered Nurse Type: Progress Notes Filed: 02/02/2021 10:07 PM Note Text: UNIVERSAL PROTOCOL / SAFETY CHECKLIST Procedure to be Performed: Ingrown toenail removal Sign In: A Moment of CARE was completed. Personnel directly involved with the procedure wore the appropriate PPE (Personal Protective Equipment). Patient/Surrogate Stated/Verified: PATIENT VERIFIED(optional for EMERGENT procedures): Patient name, Date of , Relevant allergies and The intended procedure Time Out Communication: Intended patient and procedure match the source documents. Consent documented and matches the intended procedure. Sign Out: SIGN OUT (optional for EMERGENT procedures): No specimen collected. Sadaf Gonsales RN [facility] 02-02-2021 Note HNO ID: [id number] Author: Martina Sofia Service: ? Author Type: Physician Type: Progress Notes Filed: 02/02/2021 10:07 PM Note Text: Follow up podiatric office visit for: Chief Complaint: This 30 year old who presents for follow up:ingrowing toenail of b/l hallux R>L Patient presents to clinic for evaluation of b/l hallux. Patient has chronic ingrowing toenail of b/l hallux R>l. He states the medial border causes him pain whenever he is wearing narrow shoes . He is here to discuss procedure of the toenail. Patient currently smokes 1/4 pack of cigarettes/day. Patient did have pvr to determine circulation in lower extremity. Patient is on humira every 2 weeks for psoriasis. PAIN EVALUATION 02/02/2021 1522 Pain Level: 7 Pain Location: Foot-Left BILATERAL Frequency: Intermittent No results found for: HBA1C PCP: No primary care provider on file. No past medical history on file. Current Outpatient Medications Medication Sig - HUMIRA,CF, PEN 40 mg/0.4 mL pen kit INJECT 40 MG INTO THE SKIN EVERY 14 DAYS No current facility-administered medications for this visit. ALLERGIES No Known Allergies No past surgical history on file. Physical Exam: Constitutional: Pt is a well developed 30 year old male who is alert, oriented, cooperative and in no apparent distress. OBJECTIVE: Vascular: Non-Invasive Vascular Laboratory [facility] ? Lower Extremity Arterial Physiology Study Bilateral/Complete Date of service/time: 12/10/2020 10:03:06 AM Name: MR. LENCHO ALEJO Date of : 1990 Age: 30 years Gender: M ? Clinical Indication Assessment for toe nail removal. ? TECHNIQUE -------- An arterial physiological examination was performed, including measurement of blood pressures using continuous wave Doppler and recording of plethysmographic with or without Doppler waveforms at the below-mentioned limb segments. ? FINDINGS -------- RIGHT SIDE AT REST ? Right Doppler Waveforms Dorsalis pedis: Triphasic. Post tibial: Triphasic. ? Right Pressures Brachial: 110 mmHg Ankle dorsalis pedis: 135 mmHg GEOFFREY: 1.23 Ankle posterior tibial: 135 mmHg GEOFFREY: 1.23 Digit: 122 mmHg ? Right PVR Waveforms Ankle: Normal. Digit: Normal. ? LEFT SIDE AT REST ? Left Doppler Waveforms Dorsalis pedis: Triphasic. Post tibial: Triphasic. ? Left Pressures Brachial: 109 mmHg Ankle dorsalis pedis: 124 mmHg GEOFFREY: 1.13 Ankle posterior tibial: 124 mmHg GEOFFREY: 1.13 Digit: 120 mmHg ? Left PVR Waveforms Ankle: Normal. Digit: Normal. ? IMPRESSION ? RIGHT SIDE ? Resting right ankle brachial index: 1.23 Right toe brachial index: 1.11 ? Normal ankle brachial index at rest in the right leg. Normal toe brachial index at rest in the right leg. ? Right ankle: Normal at rest. ? LEFT SIDE ? Resting left ankle brachial index: 1.13 Left toe brachial index: 1.09 ? Normal ankle brachial index at rest in the left leg. Normal toe brachial index at rest in the left leg. ? Left ankle: Normal at rest. ? Technologist: Brittni Darnell Panchito, [facility] Ordering physician: MARTINA SOFIA ? Interpreting physician: Moises Rahman MD Dermatological: B/l hallux medial nail border is ingrowing without infection. There is no pain to left hallux. There is pain to right hallux medial nail border. No ingrown to lateral nail border. Musculoskeletal/Orthopaedic: Patient has pain to palpation of right hallux medial nail border ASSESSMENT: (L60.0) Ingrown toenail (primary encounter diagnosis) PLAN: 1. History and physical examination completed today. 2. Discussed ingrowing toenail of b/l hallux medial nail border R>L. He would like to proceed with matrixectomy of right hallux Offered left hallux but he has elected to monitor. 3. I reviewed pvr. He has adequate perfusion. 4. Discussed risk of slow healing due to smoking or possible use of humira. Offered patient chance to wait until possible clearance from rheumatology. He states pain is too severe and wishes to take any associated risk by removing the toenail medial border today. 5. All r/b/a discussed. Patient consents to proceed with matrixectomy of right hallux medial nail border Discussed risks of toenail procedure not limited to infection, pain, swelling, bleeding, painful scarring, recurrence, need for revised procedure. Patient consented to proceed. Patient was properly identified by name and procedure. The right hallux was then injected with 3 cc of 1% lidocaine plain. The toe was then prepped and draped in the usual aseptic technique. A digital tournicot was applied to the toe. The medial border was then freed and removed. Careful inspection was performed to assure no remaining spicule present. 3 applications of phenol were then administered x 30 seconds each (more content not included)... [facility] 12-10-2020 Note HNO ID: [id number] Author: Martina Sofia Service: ? Author Type: Physician Type: Progress Notes Filed: 12/10/2020 12:32 PM Note Text: Consultation requested by Dr. Lucas for an opinion regarding ingrowing toenail of right hallux. My final recommendations will be communicated back to the requesting physician by way of shared Medical record or letter to requesting physician via US mail. Initial Podiatric Office Visit: Chief Complaint: This 30 year old male who presents with chief complaint:ingrowing toenail of right hallux HPI Patient presents to clinic for evaluation of right hallux. Patient has on/off ingrowing toenail of right hallux medial nail border. He states there is pain, worse with pressure. He denies any redness or drainage. He does feel he may have the beginning stages of ingrowing toenail of left hallux. PAIN EVALUATION 12/10/2020 0917 Pain Level: 8 5-8/10 Pain Location: Other: See Comment R hallux Description: Sore Frequency: Intermittent Intervention/Comfort measure: Relaxation No results found for: HBA1C PCP: No primary care provider on file. History reviewed. No pertinent past medical history. Current Outpatient Medications Medication Sig - HUMIRA,CF, PEN 40 mg/0.4 mL pen kit INJECT 40 MG INTO THE SKIN EVERY 14 DAYS No current facility-administered medications for this visit. ALLERGIES No Known Allergies History reviewed. No pertinent surgical history. History reviewed. No pertinent family history. Social History Tobacco Use - Smoking status: Current Every Day Smoker Packs/day: 0.50 - Smokeless tobacco: Never Used Substance Use Topics - Alcohol use: Not Currently - Drug use: Not on file REVIEW OF SYSTEMS GENERAL: Negative for Malaise, significant weight loss, fever RESPIRATORY: Negative for cough, wheezing and shortness of breath CARDIOVASCULAR: Negative for chest pain, leg swelling and palpitations GI: Negative for abdominal discomfort, blood in stools or black stools and change in bowel habits : Negative for dysuria, frequency and incontinence MUSCULOSKELETAL: Negative for joint pain or swelling, back pain, and muscle pain. SKIN: Negative for lesions, rash, and itching. HEMATOLOGY/LYMPHOLOGY Negative for prolonged bleeding, bruising easily, and swollen nodes. ENDOCRINE: Negative for cold or heat intolerance, polyuria, polydipsia and goiter. NEURO: negative Physical Exam: Constitutional: Pt is a well developed 30 year old male who is alert, oriented and cooperative Eyes: Following during examination. No redness or drainage. Respiratory: RR normal and nonlabored. Even breathing. No evidence of distress or shortness of breath. Psychology: Patient is engaged during conversation. Normal affect and mood. Does not appear depressed or anxious during encounter. Vascular: Dorsalis pedis and posterior tibial pulses faintly palpable as b/l Capillary Fill time < 5 seconds to digits 1-5 b/l Skin temperature warm to cool proximal to distal b/l Hair growth present to digits Neurological: intact light touch/epicritic sensation b/l intact protective sensation no significant neurological deficits Dermatological: B/l hallux medial border is ingrowing without infection. Webspaces clean and dry 1-4 b/l. Skin appears well hydrated and supple. good color, texture, turgor. No open lesions present. No callosities present. Radiographs: n/a ASSESSMENT: (R09.89) Diminished pulses in lower extremity (primary encounter diagnosis) (L60.0) Ingrown toenail PLAN: 1. History and physical examination performed. 2. Discussed ingrowing toenail of b/l hallux. No signs of infection present. Discussed options to include matrixectomy of medial and/or Lateral border. 3. Patient is a smoker with faint pulses. Will get pvr prior to any attempted removal. 4. Will call patient with results. 5. Nail with no signs of infection. No need for antibiotic Martina Sofia DPM Podiatry [address] [facility] [address] Dept: [phone] Dept [facility] 12-10-2020 Note HNO ID: [id number] Author: Dulce Musa Ma Service: ? Author Type: ? Type: Progress Notes Filed: 12/10/2020 12:32 PM Note Text: AMB ROOMING INTAKE FLOWSHEET DATA Risk Screening Do you have concerns about personal safety or safety in the home?: No Pain Pain Level: 8 (5-8/10) Pain Location: Other: See Comment (R hallux) Description: Sore Frequency: Intermittent Intervention/Comfort measure: Relaxation Patient presents with: Right Great Toe - New, Ingrown Nail [facility] 10-19-2020 Note HNO ID: [id number] Author: Micheline Lucas PA-C Service: ? Author Type: Physician Manufacturing Engineer [employer]otive Type: Progress Notes Filed: 10/19/2020 3:20 PM Note Text: This note was created using [employer]. Subjective Lencho Alejo is a 30 year old male. HPI Presents with left ear pressure and decreased hearing for 1 day. He states he went swimming yesterday and thinks he got some water in his ear. He has had earwax flushed out in the past as well. No congestion or cough. No URI symptoms. His right great toe has been painful over the past couple weeks as well. He thinks he may have an ingrown toenail. No injury or trauma. Review of Systems All other systems reviewed and are negative. History reviewed. No pertinent past medical history. Current Outpatient Medications Medication Sig Dispense Refill - HUMIRA,CF, PEN 40 mg/0.4 mL pen kit INJECT 40 MG INTO THE SKIN EVERY 14 DAYS No current facility-administered medications for this visit. History reviewed. No pertinent surgical history. History reviewed. No pertinent family history. Social History Tobacco Use - Smoking status: Current Every Day Smoker - Smokeless tobacco: Never Used Substance Use Topics - Alcohol use: Not on file - Drug use: Not on file Objective BP 112/70 Pulse 64 Temp 36.5 ?C (97.7 ?F) Resp 14 Wt 77.6 kg (171 lb) SpO2 98% Physical Exam Vitals reviewed. Constitutional: Appearance: Normal appearance. HENT: Head: Normocephalic and atraumatic. Left Ear: There is impacted cerumen. Ears: Comments: Cerumen impaction in the left external auditory canal. After cleared he does have an abrasion to the ear canal with some erythema. TM is normal. Right side unremarkable. Musculoskeletal: Comments: Exam of the right great toe reveals an ingrowing toenail. There is no erythema or swelling or sign of acute infection. Skin: General: Skin is warm and dry. Neurological: Mental Status: He is alert. Assessment and Plan ASSESSMENT/PLAN: 1. Ingrown toenail - ICD9: 703.0, ICD10: L60.0 (primary diagnosis) We will have him follow-up with podiatry. It does not appear infected today. Discussed red flags to be seen again here in the meantime. He is agreeable. - CONSULT TO PODIATRY 2. Impacted cerumen of left ear - ICD9: 380.4, ICD10: H61.22 This was flushed by nursing staff and patient feels much improved. I did send in ofloxacin as he does have an abrasion to the ear canal to prevent infection. Micheline Lucas PA-C [facility] Evaluation + Plan note Future Appointments Appointment Date:10/29/2021 02:00:00 PM Scheduled Provider:MOI LORD MD Location:UROLOGY Appointment Type:URO Off Proc Vasectomy [facility] Evaluation note No assessment inform ation available [facility] Work Phone: Evaluation note Diagnosis Encounter for long-term (current) use of high-risk medication- Primary Encounter for long-term (current) use of other medications Psoriasis vulgaris Other psoriasis Encounter for screening for respiratory tuberculosis Screening for viral disease Special screening examination for unspecified viral disease Screening examination for pulmonary tuberculosis Encounter for long-term current use of high risk medication documented in this encounter [facility] note* Diagnosis Psoriasis vulgaris Other psoriasis Encounter for long-term (current) use of high-risk medication Encounter for long-term (current) use of other medications documented in this encounter [facility] note* Diagnosis Psoriasis vulgaris- Primary Other psoriasis Encounter for long-term (current) use of high-risk medication Encounter for long-term (current) use of other medications Encounter for screening for respiratory tuberculosis Screening for viral disease Special screening examination for unspecified viral disease documented in this encounter [facility] note* Diagnosis Psoriasis vulgaris Other psoriasis Encounter for long-term (current) use of high-risk medication Encounter for long-term (current) use of other medications documented in this encounter [facility] note* Diagnosis Psoriasis vulgaris- Primary Other psoriasis documented in this encounter [facility] course Narrative No data available for this section [facility] Discharge instructions No data available for this section [facility] note No data available for this section [facility] Summary Purpose Family History No Family History Records FoundNo Family History Records Found No data available for this section No Family History Records FoundNo Family History Records FoundNo Family History Records FoundNo Family History Records Found Advance Directives No Advanced Directives Records Found Advance Directive Response Recorded Date/ Time Living Will No September 29, 2021 11:36am Power of Pack Operator No September 29 11:36am Chief Complaint and Reason for Visit Chief Complaint RIGHT KNEE PAIN, XIN H, FEVER Additional Source Comments (unrecognized sect ion and content) No Status Records FoundNo Status Records FoundNo Status Records FoundNo Status Records FoundNo Status Records FoundNo Status Records Found INFORMATION SOURCE (unrecogn ized section and content) DATE CREATED AUTHOR 05/13/2021 [facility] DATE CREATED AUTHOR AUTHOR'S ORGANIZ ATION 10/01/2021 [facility] DATE CREATED AUTHOR AUTHOR'S ORGANIZ ATION 10/08/2023 [facility] DATE CREATED AUTHOR AUTHOR'S ORGANIZ ATION 03/27/2024 [facility] DATE CREATED AUTHOR AUTHOR'S ORGANIZ ATION 03/31/2024 [facility] DATE CREATED AUTHOR AUTHOR'S ORGANIZ ATION 08/16/2024 [facility] Care Team (unrecognized sect ion and content) Care Team Personnel Name: LEXY BENITO MD Position: P3 Physician - Family Medicine Med Service: Active Provider Member Role: Primary Care Physician Address: Address: [address] [place] [address] Care Team Related Persons Name: DECLINED, Name: DECLINED, O Name: PORSHA ALEJO Address: [address] [place] [address] Name: PORSHA ALEJO Address: [address] [place] [address] [place] Name: PORSHA ALEJO Address: [address] [place] [address] [place] Name: PORSHA ALEJO Address: [address] [place] [address] [place] Name: ANISHA ALEJO Address: [facility] Address: [address] [place] [address] [place] Name: CARLINE ALEJO Address: [address] [place] [address] [place] Care Team Personnel Name: LEXY BENITO MD Position: P3 Physician - Family Medicine Med Service: Active Provider Member Role: Primary Care Physician Address: Address: [address] [place] [address] Care Team Related Persons Name: DECLINED, Name: DECLINED, O Name: PORSHA ALEJO Address: [address] [place] [address] [place] Name: PORSHA ALEJO Address: [address] [place] [address] [place] Name: PORSHA ALEJO Address: [address] [place] [address] Name: PORSHA ALEJO Address: [address] [place] [address] [place] Name: ANISHA ALEJO Address: [facility] Address: [address] [place] [address] [place] Name: CARLINE ALEJO Address: [address] [place] [id number] Goals (unrecognized section and content) Goals may be documented in a n alternate section Reason for Visit (unrecogniz ed section and content) Reason Onset Date Comments Med Refill 06/09/2022 Reason Comments Psoriasis PRAVEEN 12/07/21 w/ Michi Andres PA-C ([facility]) Reason Comments Psoriasis LV 06/30/2022 w Sonya Andres PA-C ([facility]) Reason Comments Med Refill Reason Comments Psoriasis (PKN) Reason Onset Date Comments Med Refill 04/03/2024 Reason Comments Psoriasis (JY) Reason Onset Date Comments Med Refill 07/25/2024 Zoryve cream. Care Teams (unrecognized sec tion and content) Sales Representative Graphic Art Relationship Specialty Start Date End Date Jose Benito MD [address] [place] [address] PCP - General 12/10/19 Sales Representative Graphic Art Relationship Specialty Start Date End Date Jose Benito MD [address] [place] [address] PCP - General 12/10/19 Sales Representative Graphic Art Relationship Specialty Start Date End Date Jose Benito MD [address] [place] [address] PCP - General 12/10/19 Sales Representative Graphic Art Relationship Specialty Start Date End Date Jose Benito MD [address] [place] [address] PCP - General 12/10/19 Sales Representative Graphic Art Relationship Specialty Start Date End Date Jose Benito MD [address] [place], [place] [id number] PCP - General 12/10/19 Sales Representative Graphic Art Relationship Specialty Start Date End Date Jose Benito MD [address] [place] [place] [id number] PCP - General 12/10/19 Sales Representative Graphic Art Relationship Specialty Start Date End Date Jose Benito MD [address] [place] [address] PCP - General 12/10/19 Sales Representative Graphic Art Relationship Specialty Start Date End Date Jose Benito MD [address] [place] [address] PCP - General 12/10/19 FOR RECORDS PERTAINING TO PATIENTS WHO ARE OR HAVE BEEN ENROLLED IN A CHEMICAL DEPENDENCY/SUBSTANCEABUSE PROGRAM, SOME INFORMATION MAY BE OMITTED. This clinical summary was aggregated from multiple sources. Caution should be exercised in using it in the provision of clinical care. This summary normalizes information from multiple sources, and as a consequence, information in this document may materially change the coding, format and clinical context of patient data. In addition, data may be omitted in some cases. CLINICAL DECISIONS SHOULD BE BASED ON THE PRIMARY CLINICAL RECORDS. [facility] [employer] [facility]. provides no warranty or guarantee of the accuracy or completeness of information in this document.
--- NOTE | 2024-10-20 16:15 | RAD_ITS ---
PROCEDURE: LUMBAR SPINE 2 OR 3 VIEWS 10/20/2024 REASON FOR EXAM: Low back pain. TECHNIQUE: Procedure Code: RADSPLL Modality: DX Procedure: LUMBAR SPINE 2 OR 3 VIEWS COMPARISON: None. FINDINGS: Vertebrae: Height is maintained. Discs: Height is maintained. Alignment: Normal lumbar lordosis Other: Facets and posterior elements are well-maintained. RAD/Lumbar Spine 2 or 3 Views IMPRESSION: No acute process identified. Reading Location: [facility]
== END | disposition home or self-care (01) ==
PROVIDERS: PCP Family Medicine; Visit Provider Family Medicine
DX: M54.50 Low back pain, unspecified (principal)
CPT/HCPCS: 72100